=== PATIENT | male | born 1950 | race Caucasian/White ===

== ENCOUNTER 2020-05-22 08:48 | Emergency (ER) | payer MEDICARE, MEDICAID ==
[2020-05-22] MEDS ORDERED: ONDANSETRON HCL INJ/PF 4 MG/2 ML SDV IV ONE ×2 (09:52→12:46)
[2020-05-22] MEDS ORDERED: NORMAL SALINE 1000 ML 1,000 ML IV ONE (09:52)
[2020-05-22 10:06] LABS: APPEARANCE,URINE CLEAR; BILIRUBIN,URINE NEGATIVE (NEGATIVE); COLOR,URINE YELLOW; GLUCOSE, URINE NEGATIVE (NEGATIVE); KETONES,URINE TRACE mg/dL (NEGATIVE); LEUKOCYTE ESTERASE,URINE NEGATIVE (NEGATIVE); NITRITE,URINE NEGATIVE (NEGATIVE); PROTEIN,URINE NEGATIVE (NEGATIVE); UROBILINOGEN,URINE NEGATIVE mg/dL (<2.0)
[2020-05-22 10:19] LABS: ABSOLUTE LYMPHOCYTES (AUTO) 1.8 10^3/uL (0.5-4.7); ABSOLUTE MONOCYTES (AUTO) 1.1 10^3/uL (0.1-1.4); ABSOLUTE NEUT (AUTO) 14.2 10^3/uL (1.7-8.2); BASOPHILS % (AUTO) 0.2 % (0-2); HEMATOCRIT 40.2 % (37.9-51.0); HEMOGLOBIN 13.2 g/dL (13.5-17.0); LYMPHOCYTES % (AUTO) 10.4 % (13-45); MEAN CORPUSCULAR HEMOGLOBIN 29.4 pg (27.0-33.4); MEAN CORPUSCULAR VOLUME 89 fl (80-97); MONOCYTES % (AUTO) 6.2 % (3-13); PLATELET COUNT 322 10^3/uL (150-450); RED CELL DISTRIBUTION WIDTH 13.6 % (11.5-14.0); SEGMENTED NEUTROPHILS % (AUTO) 83.2 % (42-78); TOTAL CELLS COUNTED % (AUTO) 100 %; WHITE BLOOD COUNT 17.1 10^3/uL (4.0-10.5)
--- NOTE | 2020-05-22 10:33 | ER Document Report ---
ED General - General Chief Complaint: Flu Symptoms Stated Complaint: FEVER,NAUSEA,HEADACHE Time Seen by Provider: 05/22/20 09:50 Primary Care Provider: LUCY DORMAN [NO LOCAL MD] - Follow up as needed Notes: CHIEF COMPLAINT: Headache, fever, chills for 2 days HPI: 70-year-old male presenting for headache fever chills for 2 days. States he had heatstroke from working outside 2 weeks ago never was evaluated for this had some nausea and headache that went away over 2 days but it has reoccurred. He denies chest pain shortness of breath or cough. He denies abdominal pain. He denies nausea vomiting or diarrhea to me but told nursing he had nausea and some diarrhea. ROS: See HPI - all other systems were reviewed and are otherwise negative Constitutional: Subjective fever Eyes: no drainage, no blurred vision ENT: no runny nose, no sore throat Cardiovascular: no chest pain Resp: no SOB, no cough GI: no vomiting, positive diarrhea, no abdominal pain, positive nausea 97% on room air not hypoxic : no dysuria Integumentary: no rash Allergy: no hives Musculoskeletal: no extremity pain or swelling Neurological: no numbness/tingling, no weakness, positive headache MEDICATIONS: I agree with the patient medications as charted by the RN. ALLERGIES: I agree with the allergies as charted by the RN. PAST MEDICAL HISTORY/PAST SURGICAL HISTORY: Reviewed and agree as charted by RN. SOCIAL HISTORY: Reviewed and agree as charted by RN. FAMILY HISTORY: No significant familial comorbid conditions directly related to patient complaint EXAM: Reviewed vital signs as charted by RN. CONSTITUTIONAL: Alert and oriented and responds appropriately to questions. Well-appearing; well-nourished HEAD: Normocephalic; atraumatic EYES: PERRL; Conjunctivae clear, sclerae non-icteric ENT: normal nose; no rhinorrhea; moist mucous membranes; pharynx without lesions noted, no uvula edema or deviation, no tonsillar hypertrophy, phonation normal NECK: Supple without meningismus; non-tender; no cervical lymphadenopathy, no masses CARD: RRR; no murmurs, no clicks, no rubs, no gallops; symmetric distal pulses RESP: Normal chest excursion without splinting or tachypnea; breath sounds clear and equal bilaterally; no wheezes, no rhonchi, no rales, pulse oximetry ABD/GI: Normal bowel sounds; non-distended; soft, non-tender, no rebound, no guarding; no palpable organomegaly or masses. BACK: The back appears normal and is non-tender to palpation, there is no CVA tenderness EXT: Normal ROM in all joints; non-tender to palpation; no cyanosis, no effusions, no edema SKIN: Normal color for age and race; warm; dry; good turgor; no acute lesions noted NEURO: Moves all extremities equally; Motor and sensory function intact PSYCH: The patient's mood and manner are appropriate. Grooming and personal hygiene are appropriate. MDM: 70-year-old male presenting with a variety of symptoms. Told nursing he had nausea and some diarrhea but denies this to me. Initial screening labs per nursing will add COVID study. He has no chest pain shortness of breath to suggest pneumonia at this time. He has absolutely no abdominal pain on exam - Related Data Allergies/Adverse Reactions: No Known Allergies Allergy (Verified 05/22/20 09:36) Past Medical History - Social History Smoking Status: Never Smoker Chew tobacco use (# tins/day): No Frequency of alcohol use: None Drug Abuse: None Family History: Reviewed & Not Pertinent Physical Exam - Vital signs Vitals: Temp Pulse Resp BP Pulse Ox 100.3 F 83 20 147/65 H 91 L 05/22/20 10:59 05/22/20 10:59 05/22/20 10:59 05/22/20 10:59 05/22/20 10:59 Course - Re-evaluation Re-evalutation: 05/22/20 10:[address] Delacruz. Patient with a moderate leukocytosis of 17,000, does not have abdominal pain but no explanation for elevated leukocytosis, will add chest x-ray to evaluate for occult pneumonia and also add abdominal CT, urine does not show evidence of infection 05/22/20 12:37 Patient had temperature up to 100.3 here. He will be tested for COVID-19. CT imaging does not show evidence of infection. Urine is clean, isolated leukocytosis. Will give strict return precautions 05/22/20 12:41 Patient is able to fully move head and neck without restriction, no meningeal signs at all, no abdominal pain on reexam - Vital Signs Vital signs: Temp Pulse Resp BP Pulse Ox 100.3 F 83 20 147/65 H 91 L 05/22/20 10:59 05/22/20 10:59 05/22/20 10:59 05/22/20 10:59 05/22/20 10:59 - Laboratory Result Diagrams: 05/22/20 09:30 05/22/20 09:30 Laboratory results interpreted by me: 05/22/20 05/22/20 05/22/20 09:30 09:30 09:30 WBC 17.1 H Hgb 13.2 L Lymph % (Auto) 10.4 L Absolute Neuts (auto) 14.2 H Seg Neutrophils % 83.2 H Sodium 135.2 L Glucose 122 H Urine Ketones TRACE H Discharge - Discharge Clinical Impression: Person under investigation for COVID-19 Fever Qualifiers: Fever type: unspecified Qualified Code(s): R50.9 - Fever, unspecified Diarrhea Qualifiers: Diarrhea type: unspecified type Qualified Code(s): R19.7 - Diarrhea, unspecified Condition: Stable Disposition: HOME, SELF-CARE Additional Instructions: Continue Motrin Tylenol for fever. You are considered a person under investigation for COVID-19 at this time. Self quarantine at home until you have a negative test result. Test results usually take 2 to 5 days and you should hear from someone at the hospital about your test result. Return for worsening symptoms. Hydrate well at home. Your imaging studies today did not show a definitive cause for your symptoms Referrals: DENNISE RICO MD [ACTIVE STAFF] - Follow up as needed
[2020-05-22 10:51] LABS: ALBUMIN 4.4 g/dL (3.5-5.0); ALKALINE PHOSPHATASE 80 U/L (38-126); ANION GAP 9 (5-19); ASPARTATE AMINO TRANSFERASE 26 U/L (17-59); BILIRUBIN,DIRECT 0.1 mg/dL (0.0-0.4); BLOOD UREA NITROGEN 16 mg/dL (7-20); CALCIUM 9.5 mg/dL (8.4-10.2); CARBON DIOXIDE 26 mmol/L (22-30); CHLORIDE 100 mmol/L (98-107); GLUCOSE 122 mg/dL (75-110); POTASSIUM 4.4 mmol/L (3.6-5.0); TOTAL PROTEIN 7.5 g/dL (6.3-8.2)
--- NOTE | 2020-05-22 11:09 | RADIOLOGY REPORT (SQ) ---
EXAM DESCRIPTION: CHEST SINGLE VIEW IMAGES COMPLETED DATE/TIME: 05/22/2020 11:00 am REASON FOR STUDY: upper resp sx COMPARISON: None. EXAM PARAMETERS: NUMBER OF VIEWS: One view. TECHNIQUE: Single frontal radiographic view of the chest acquired. RADIATION DOSE: NA LIMITATIONS: None. FINDINGS: LUNGS AND PLEURA: No opacities, masses or pneumothorax. No pleural effusion. MEDIASTINUM AND HILAR STRUCTURES: No masses. Contour normal. HEART AND VASCULAR STRUCTURES: Heart normal in size. Normal vasculature. BONES: Old right mid clavicular fracture. HARDWARE: None in the chest. OTHER: No other significant finding. IMPRESSION: NO ACUTE RADIOGRAPHIC FINDING IN THE CHEST. TECHNICAL DOCUMENTATION: JOB ID: [id number] 2010 [employer]- All Rights Reserved Reading location - IP/workstation name: [email or web address]
[2020-05-22] MEDS ORDERED: ACETAMINOPHEN 325 MG TABLET PO ONE (11:14)
--- NOTE | 2020-05-22 12:09 | RADIOLOGY REPORT (SQ) ---
EXAM DESCRIPTION: CT ABD/PELVIS WITH IV ONLY IMAGES COMPLETED DATE/TIME: 05/22/2020 11:36 am REASON FOR STUDY: leukocytosis, diarrhea COMPARISON: None. TECHNIQUE: CT scan of the abdomen and pelvis performed using helical scanning technique with dynamic intravenous contrast injection. No oral contrast. Images reviewed with lung, soft tissue, and bone windows. Reconstructed coronal and sagittal MPR images reviewed. Delayed images for evaluation of the urinary system also acquired. All images stored on PACS. All CT scanners at this facility use dose modulation, iterative reconstruction, and/or weight based d osing when appropriate to reduce radiation dose to as low as reasonably achievable (ALARA). [facility]: Dose Right [facility]: CareDose [facility]: Dose Right [facility]: Teradose 4D [facility]: [email or web address] CONTRAST TYPE AND DOSE: contrast/concentration: Isovue 350.00 mmol/ml; Total Contrast Delivered: 83. 0 ml; Total Saline Delivered: 69.0 ml RENAL FUNCTION: BUN 16, creatinine 1.03 RADIATION DOSE: CT Rad equipment meets quality standard of care and radiation dose reduction techniq ues were employed. CTDIvol: 7.8 - 11.0 mGy. DLP: 955 mGy-cm.. LIMITATIONS: None. FINDINGS: LOWER CHEST: No significant findings. No nodules or infiltrates. LIVER: Normal size. No masses. No dilated ducts. SPLEEN: Normal size. No focal lesions. PANCREAS: No masses. No significant calcifications. No adjacent inflammation or peripancreatic fluid collections. Pancreatic duct not dilated. GALLBLADDER: No identified stones by CT criteria. No inflammatory changes to suggest cholecystitis. ADRENAL GLANDS: No significant masses or asymmetry. RIGHT KIDNEY AND URETER: No solid masses. No significant calcifications. No hydronephrosis or hyd roureter. There are right parapelvic cysts LEFT KIDNEY AND URETER: No solid masses. No significant calcifications. No hydronephrosis or hydr oureter. AORTA AND VESSELS: No aneurysm. No dissection. Renal arteries, SMA, celiac without stenosis. RETROPERITONEUM: No retroperitoneal adenopathy, hemorrhage or masses. BOWEL AND PERITONEAL CAVITY: No masses or inflammatory changes. No free fluid or peritoneal masses. APPENDIX: Normal. PELVIS: No mass. No free fluid. Normal bladder. ABDOMINAL WALL: No masses. No hernias. BONES: No significant or acute findings. OTHER: No other significant finding. IMPRESSION: NO SIGNIFICANT OR ACUTE FINDING IN THE ABDOMEN OR PELVIS ON CT SCAN WITH IV CONTRAST. TECHNICAL DOCUMENTATION: JOB ID: [id number] Quality ID # [id number]: Final reports with documentation of one or more dose reduction techniques (e.g., Au tomated exposure control, adjustment of the mA and/or kV according to patient size, use of iterative reconstruction technique) 2010 [employer]- All Rights Reserved Reading location - IP/workstation name: [email or web address]
[2020-05-22] MEDS ORDERED: KETOROLAC TROMETHAMINE INJ/PF 30 MG/1 ML SDV IV ONE (12:45)
--- NOTE | 2020-05-22 14:47 | RADIOLOGY REPORT (SQ) ---
EXAM DESCRIPTION: CT HEAD WITHOUT IMAGES COMPLETED DATE/TIME: 05/22/2020 2:38 pm REASON FOR STUDY: headache COMPARISON: None. TECHNIQUE: Axial images acquired through the brain without intravenous contrast. Images reviewed wi th bone, brain and subdural windows. Additional sagittal and coronal reconstructions were generated. Images stored on PACS. All CT scanners at this facility use dose modulation, iterative reconstruction, and/or weight based d osing when appropriate to reduce radiation dose to as low as reasonably achievable (ALARA). [facility]: Dose Right [facility]: CareDose [facility]: Dose Right [facility]: Teradose 4D [facility]: [employer] RADIATION DOSE: CT Rad equipment meets quality standard of care and radiation dose reduction techniq ues were employed. CTDIvol: 53.2 mGy. DLP: 1017 mGy-cm. mGy. LIMITATIONS: None. FINDINGS: VENTRICLES: Normal size and contour. CEREBRUM: No masses. No hemorrhage. No midline shift. No evidence for acute infarction. Normal gra y/white matter differentiation. No areas of low density in the white matter. CEREBELLUM: No masses. No hemorrhage. No alteration of density. No evidence for acute infarction. EXTRAAXIAL SPACES: No fluid collections. No masses. ORBITS AND GLOBE: No intra- or extraconal masses. Normal contour of globe without masses. CALVARIUM: No fracture. PARANASAL SINUSES: There is bilateral maxillary sinus mucosal thickening left greater than right. SOFT TISSUES: No mass or hematoma. OTHER: No other significant finding. IMPRESSION: 1. No acute intracranial event. 2. Bilateral maxillary sinusitis left greater than right. EVIDENCE OF ACUTE STROKE: NO. COMMENT: Quality ID # [id number]: Final reports with documentation of one or more dose reduction techniques (e.g., Automated exposure control, adjustment of the mA and/or kV according to patient size, use of iterative reconstruction technique) TECHNICAL DOCUMENTATION: JOB ID: [id number] 2010 [employer]- All Rights Reserved Reading location - IP/workstation name: [email or web address]
[2020-05-22] MEDS ORDERED: AMOXICILLIN TR/POT CLAVULANATE 875-125 MG TAB PO ONE (14:53)
[2020-05-22 15:12] VITALS: BP 124/68
== END 2020-05-22 15:03 | disposition home or self-care (01) ==
LOC: ER 08:48
DX: J01.00 Acute maxillary sinusitis, unspecified (principal); R19.7 Diarrhea, unspecified; R50.9 Fever, unspecified; R51 Headache; Z98.890 Other specified postprocedural states; Z20.828 Contact with and (suspected) exposure to other viral communicable diseases
CPT/HCPCS: 96376; 99284; 96361; 96374; 96375; 36415; 87040; 82550; 85025; 87077; 80053; 81001; 87150 ×26; 71045; 70450; 74177; U0003; A9270; J1885; J2405; J7030; J3490; C9803; 87186; 87635

== ENCOUNTER 2020-05-23 04:29 | Inpatient (IN) | payer MEDICAID, MEDICARE ==
[2020-05-23] MEDS ORDERED: ACETAMINOPHEN 325 MG TABLET PO ONE ×2 (07:06→07:36)
[2020-05-23] MEDS ORDERED: NORMAL SALINE 1000 ML 1,000 ML IV ONE (07:37)
[2020-05-23 08:15] LABS: ABSOLUTE LYMPHOCYTES (AUTO) 1.3 10^3/uL (0.5-4.7); ABSOLUTE MONOCYTES (AUTO) 1.1 10^3/uL (0.1-1.4); BASOPHILS % (AUTO) 0.2 % (0-2); HEMATOCRIT 38.4 % (37.9-51.0); HEMOGLOBIN 12.8 g/dL (13.5-17.0); LYMPHOCYTES % (AUTO) 8.2 % (13-45); MEAN CORPUSCULAR HEMOGLOBIN 29.6 pg (27.0-33.4); MEAN CORPUSCULAR HGB CONC 33.4 g/dL (32.0-36.0); MEAN CORPUSCULAR VOLUME 89 fl (80-97); MONOCYTES % (AUTO) 6.5 % (3-13); PLATELET COUNT 308 10^3/uL (150-450); RED BLOOD COUNT 4.33 10^6/uL (4.35-5.55); RED CELL DISTRIBUTION WIDTH 13.3 % (11.5-14.0); SEGMENTED NEUTROPHILS % (AUTO) 85.1 % (42-78); TOTAL CELLS COUNTED % (AUTO) 100 %; WHITE BLOOD COUNT 16.4 10^3/uL (4.0-10.5)
[2020-05-23 08:24] LABS: ALBUMIN 4.3 g/dL (3.5-5.0); ALKALINE PHOSPHATASE 77 U/L (38-126); ANION GAP 8 (5-19); ASPARTATE AMINO TRANSFERASE 32 U/L (17-59); BILIRUBIN,DIRECT 0.1 mg/dL (0.0-0.4); BLOOD UREA NITROGEN 20 mg/dL (7-20); CALCIUM 9.3 mg/dL (8.4-10.2); CARBON DIOXIDE 26 mmol/L (22-30); CHLORIDE 100 mmol/L (98-107); CREATINE KINASE 603 U/L (55-170); GLUCOSE 115 mg/dL (75-110); POTASSIUM 4.4 mmol/L (3.6-5.0); TOTAL PROTEIN 7.2 g/dL (6.3-8.2)
--- NOTE | 2020-05-23 08:43 | ER Document Report ---
Entered by KARTHIK ORELLANA SCRIBE 05/23/20 0735 Acting as scribe for:ASIYA ISRAEL MD ED General - General Chief Complaint: Headache Stated Complaint: ABNORMAL LABS Time Seen by Provider: 05/23/20 07:14 Mode of Arrival: Ambulatory Information source: Patient Notes: This 70 year old male patient presents to the emergency department today after being called at around 3:00 AM this morning for gram positive rods in blood cultures drawn yesterday. Patient reports that a week and a half ago he was outside in the heat for about 1.5 hours and when he came back inside he did not feel well, complaining of a headache. This headache has waxed and waned since then. reports that two days ago the patient began "stumbling around and couldn't walk or get out of bed", stating that he had a headache and movement exacerbated the headache. states the patient has not eaten any food in two days either. Patient was seen here yesterday for fever, nausea, and headache. The patient had a work-up including a CT scan of the abdomen and pelvis and a chest x-ray. His white blood cell count was elevated. At discharge he continued to complain of headache, so a head CT was done. Head CT showed bilateral maxillary sinus disease left > right. Patient was sent home on Augmentin 875(he had 1 dose here, and 1 dose at home last night). He last took tylenol last night at 11:30 PM. Patient has had associated nausea, chills, fevers, lightheadedness, dark urine, and a stiff neck. 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 Patient has not vomited. TRAVEL OUTSIDE OF THE [place] IN LAST 30 DAYS: No - Related Data Allergies/Adverse Reactions: No Known Allergies Allergy (Verified 05/22/20 09:36) Home Medications: Augmentin Past Medical History - General Information source: Patient - Social History Smoking Status: Former Smoker Cigarette use (# per day): No Chew tobacco use (# tins/day): No Frequency of alcohol use: None Drug Abuse: None Lives with: Family Family History: Reviewed & Not Pertinent Traumatic Medical History: Reports: Hx Spine Fracture - neck Past Surgical History: Reports: Other - Cervical fracture repair Review of Systems - Review of Systems Constitutional: See HPI, Chills, Fever EENT: No symptoms reported Cardiovascular: See HPI, Lightheaded Respiratory: No symptoms reported Gastrointestinal: See HPI, Nausea. denies: Vomiting Genitourinary: No symptoms reported Male Genitourinary: No symptoms reported Musculoskeletal: See HPI, Muscle stiffness, Neck pain Skin: No symptoms reported Hematologic/Lymphatic: No symptoms reported Neurological/Psychological: See HPI, Headaches -: Yes All other systems reviewed and negative Physical Exam - Vital signs Vitals: Temp Pulse Resp BP Pulse Ox 99.3 F 80 20 144/77 H 100 05/23/20 04:37 05/23/20 04:37 05/23/20 04:37 05/23/20 04:37 05/23/20 04:37 - Notes Notes: Physical Exam: General: Alert, appears uncomfortable. HEENT: Normocephalic. Atraumatic. PERRL. Extraocular movements intact. Patient denies pain with extreme lateral gaze in either direction. Oropharynx clear. No maxillary or frontal sinus tenderness with percussion. He indicates there is pain in his frontal/forehead region and on the sides of his head although overlying muscles are not tender with palpation. Neck: Limited neck flexion, flexion seems to exacerbates headache and he complains of pain with neck flexion but mentions that his neck always hurts when flexed due to prior neck fracture and arthritis. Respiratory: No respiratory distress. Clear and equal breath sounds bilaterally. Cardiovascular: Regular rate and rhythm. Abdominal: Normal Inspection. Non-tender. No distension. Normal Bowel Sounds. Back: No gross abnormalities. Extremities: Moves all four extremities. Upper extremities: Normal inspection. Normal ROM. Lower extremities: Normal inspection. No edema. Normal ROM. Neurological: Normal cognition. AAOx4. Normal speech. When I had the patient stand up to walk, he is very unsteady on his feet and describes just a generalized weakness. Psychological: Normal affect. Normal Mood. Skin: Warm. Dry. Normal color. Course - Re-evaluation Re-evalutation: 05/23/20 09:58 Went back to recheck on the patient, he is feeling a little better after the Tylenol. I was able to have him almost fully flex his neck with chin almost touching the chest. He states he usually is unable to go any further than that. It makes his neck a little uncomfortable, but does not make the headache any worse. 05/23/20 16:16 PROCEDURE: Lumbar puncture: The patient was placed in the left lateral position with his hips and knees flexed. The lumbar back was prepped with Betadine swabs starting in the center at the L4-5 region and cristina in a circular motion extending out from the center. This was done with all the swabs. The skin and subcutaneous tissue was anesthetized with 4 mL's 1% lidocaine. The needle was then introduced deeper with 2 more mL's into the bony cortical surfaces. The initial attempt to access the spinal fluid was unsuccessful, and the needle was positioned cephalad about 1 cm. This was successful in entering the space and clear CSF fluid was encountered. Opening pressure was 190 mm of water. Four tubes were each filled with 1 mL of CSF. The stylette was placed back in the LP needle, then the needle was withdrawn and a gauze with pressure was applied over the LP spot for several minutes. Band-Aids were then placed over the 2 puncture sites. Patient was then rolled onto his back and allowed to lay flat on his back post procedure. - Vital Signs Vital signs: Temp Pulse Resp BP Pulse Ox 98.7 F 80 32 H 151/76 H 96 05/23/20 09:58 05/23/20 04:37 05/23/20 14:01 05/23/20 14:01 05/23/20 14:01 - Laboratory Result Diagrams: 05/23/20 07:48 05/23/20 07:48 Laboratory results interpreted by me: 05/23/20 05/23/20 05/23/20 07:48 07:48 09:22 WBC 16.4 H RBC 4.33 L Hgb 12.8 L Lymph % (Auto) 8.2 L Absolute Neuts (auto) 14.0 H Seg Neutrophils % 85.1 H Sodium 133.5 L Glucose 115 H Creatine Kinase 603 H Urine Ketones 20 H Urine Blood SMALL H Urine Urobilinogen 2.0 H CSF WBC CSF Total Protein 05/23/20 05/23/20 05/23/20 11:10 11:10 11:10 WBC RBC Hgb Lymph % (Auto) Absolute Neuts (auto) Seg Neutrophils % Sodium Glucose Creatine Kinase Urine Ketones Urine Blood Urine Urobilinogen CSF WBC 82 H 72 H CSF Total Protein 111 H - Consults Dr. Rocha Time consulted: 11:52 Consulted provider: will come to ER Discharge - Discharge Clinical Impression: Viral meningitis, Person under investigation for COVID-19 Fever Qualifiers: Fever type: unspecified Qualified Code(s): R50.9 - Fever, unspecified Condition: Stable Disposition: ADMITTED INPATIENT Admitting Provider: Josefina (Hospitalist) Unit Admitted: [facility] I personally performed the services described in the documentation, reviewed and edited the documentation which was dictated to the scribe in my presence, and it accurately records my words and actions.
[2020-05-23 09:42] LABS: APPEARANCE,URINE CLEAR; BILIRUBIN,URINE NEGATIVE (NEGATIVE); COLOR,URINE YELLOW; GLUCOSE, URINE NEGATIVE (NEGATIVE); KETONES,URINE 20 mg/dL (NEGATIVE); LEUKOCYTE ESTERASE,URINE NEGATIVE (NEGATIVE); NITRITE,URINE NEGATIVE (NEGATIVE); PROTEIN,URINE NEGATIVE (NEGATIVE); URINE SPECIFIC GRAVITY 1.025
[2020-05-23] MEDS ORDERED: LIDOCAINE 1% INJ-PF (10 MG/ML) 30 ML SDV INJ ONE (10:30)
[2020-05-23 11:52] LABS: GLUCOSE,CSF 61 mg/dL (40-70); PROTEIN,CSF 111 mg/dL (12-60)
[2020-05-23 12:31] LABS: APPEARANCE ALL TUBES CLEAR; COLOR ALL TUBES COLORLESS; CSF TUBE NUMBER 1
[2020-05-23 12:32] LABS: RED BLOOD CELL,CSF 7 /uL (0-10); WHITE BLOOD CELL,CSF 82 /uL (0-5)
[2020-05-23 12:33] LABS: APPEARANCE ALL TUBES CLEAR; COLOR ALL TUBES COLORLESS; CSF TUBE NUMBER 4; RED BLOOD CELL,CSF 2 /uL (0-10)
[2020-05-23 12:34] LABS: WHITE BLOOD CELL,CSF 72 /uL (0-5)
[2020-05-23 12:52] LABS: MONONUCLEAR CELLS CSF 63 %; POLYMORPHONUCLEAR CELLS CSF 37 %
[2020-05-23 12:55] LABS: MONONUCLEAR CELLS CSF 76 %; POLYMORPHONUCLEAR CELLS CSF 24 %
[2020-05-23] MEDS ORDERED: ONDANSETRON HCL INJ/PF 4 MG/2 ML SDV IV PRN (13:34)
[2020-05-23] MEDS ORDERED: KETOROLAC TROMETHAMINE INJ/PF 30 MG/1 ML SDV IV PRN (13:56)
[2020-05-23] MEDS ORDERED: VANCOMYCIN HCL INJ 1000 MG VIAL IV SCH (14:00)
[2020-05-23] MEDS ORDERED: ACYCLOVIR SODIUM INJ/PF 500 MG/10 ML SDV IV SCH (14:00)
--- NOTE | 2020-05-23 14:35 | PDOC H&P ---
History of Present Illness Patient complains of: Dizziness, headache, fever History of Present Illness: RAFAEL PARADA is a 70 year old male with history of cognitive impairments, who presents to the hospital with complaints of profuse headache as well as fever for the past few days. His symptoms started last week while he was outside working on the yard. He subsequently developed heavy fever as well as headache. The headache is in his parieto-occipital region. Over the past 2 days. He started to feel extremely sluggish and dizzy to the point where he was somewhat challenging to ambulate. He admits to photophobia. He denies phonophobia, nausea or vomiting. He denies any weakness in the extremities he denies any changes in mental status. Patient's sister is present at bedside who helps with history as well and states that patient has not really experienced any personality changes due to this. Denies exposure to sick contacts. Apparently patient rarely leaves the house. Patient was in the ER yesterday and was tested for COVID-19 discharged with Augmentin after CAT scan revealed sinusitis. Past Medical History Cardiac Medical History: Denies: Congestive Heart Failure, Coronary Artery Disease, Hypertension Pulmonary Medical History: Denies: Asthma, Chronic Obstructive Pulmonary Disease (COPD), Tuberculosis Neurological Medical History: Denies: Hemorrhagic CVA, Ischemic CVA Endocrine Medical History: Denies: Diabetes Mellitus Type 1, Diabetes Mellitus Type 2 Past Surgical History Past Surgical History: Reports: Other - Cervical fracture repair Social History Lives with: Family Smoking Status: Former Smoker Electronic Cigarette use?: No Frequency of Alcohol Use: None Hx Recreational Drug Use: No - Advance Directive Resuscitation Status: Full Code Family History Family History: Malignancy - For lung cancer and colon cancer in siblings Parental Family History Reviewed: Yes Children Family History Reviewed: NA Sibling(s) Family History Reviewed.: Yes Medication/Allergy Home Medications: Amoxicillin/Potassium Clav [Augmentin 875-125 Tablet] 1 tab PO Q12 #20 tablet 05/22/20 Allergies/Adverse Reactions: No Known Allergies Allergy (Verified 05/22/20 09:36) Review of Systems Constitutional: PRESENT: fever(s) Eyes: PRESENT: visual disturbances - Photophobia Ears: ABSENT: hearing changes Nose, Mouth, and Throat: PRESENT: headache(s) Cardiovascular: ABSENT: chest pain Respiratory: ABSENT: cough, dyspnea Gastrointestinal: ABSENT: abdominal pain, nausea, vomiting Genitourinary: PRESENT: dysuria Musculoskeletal: ABSENT: joint swelling Integumentary: PRESENT: diaphoresis Neurological: PRESENT: dizziness, lack of coordination. ABSENT: abnormal movements, abnormal speech, numbness, paresthesias, syncope, weakness Endocrine: ABSENT: polyuria Hematologic/Lymphatic: ABSENT: lymphadenopathy Allergic/Immunologic: PRESENT: seasonal rhinorrhea Physical Exam Vital Signs: Temp Pulse Resp BP Pulse Ox 98.7 F 80 21 H 120/75 95 05/23/20 09:58 05/23/20 04:37 05/23/20 09:03 05/23/20 09:03 05/23/20 09:03 Intake & Output 05/22/20 05/23/20 05/24/20 06:59 06:59 06:59 Intake Total 1000 Output Total 650 Balance 350 Weight 72.575 kg General appearance: PRESENT: no acute distress, cooperative Head exam: PRESENT: normocephalic Eye exam: PRESENT: EOMI, PERRLA. ABSENT: nystagmus Mouth exam: PRESENT: neck supple Neck exam: ABSENT: JVD Respiratory exam: PRESENT: clear to auscultation kev, tachypnea, wheezes. ABSENT: symmetrical, unlabored Cardiovascular exam: PRESENT: RRR, +S1, +S2. ABSENT: tachycardia GI/Abdominal exam: PRESENT: normal bowel sounds, soft. ABSENT: rebound, rigid, tenderness Extremities exam: ABSENT: pedal edema Neurological exam: PRESENT: alert, awake, oriented to person, oriented to place, oriented to situation, CN II-XII grossly intact. ABSENT: oriented to time, motor sensory deficit Psychiatric exam: PRESENT: anxious. ABSENT: agitated Focused psych exam: ABSENT: pressured speech Skin exam: ABSENT: jaundice Results Laboratory Results: 05/23/20 07:48 05/23/20 07:48 05/23/20 05/23/20 05/23/20 07:48 07:48 07:48 WBC 16.4 H RBC 4.33 L Hgb 12.8 L Hct 38.4 MCV 89 MCH 29.6 MCHC 33.4 RDW 13.3 Plt Count 308 Seg Neutrophils % 85.1 H Sodium 133.5 L Potassium 4.4 Chloride 100 Carbon Dioxide 26 Anion Gap 8 BUN 20 Creatinine 1.00 Est GFR ( Amer) > 60 Glucose 115 H Lactic Acid 1.0 Calcium 9.3 Total Bilirubin 1.0 AST 32 Alkaline Phosphatase 77 Total Protein 7.2 Albumin 4.3 Urine Color Urine Appearance Urine pH Ur Specific [place] Urine Protein Urine Glucose (UA) Urine Ketones Urine Blood Urine Nitrite Ur Leukocyte Esterase Urine WBC (Auto) Urine RBC (Auto) Fluid Tube Number CSF Volume CSF Appearance CSF Color CSF WBC CSF RBC CSF Polymorphonuclear CSF Glucose CSF Total Protein 05/23/20 05/23/20 05/23/20 09:22 11:10 11:10 WBC RBC Hgb Hct MCV MCH MCHC RDW Plt Count Seg Neutrophils % Sodium Potassium Chloride Carbon Dioxide Anion Gap BUN Creatinine Est GFR ( Amer) Glucose Lactic Acid Calcium Total Bilirubin AST Alkaline Phosphatase Total Protein Albumin Urine Color YELLOW Urine Appearance CLEAR Urine pH 5.0 Ur Specific [place] 1.025 Urine Protein NEGATIVE Urine Glucose (UA) NEGATIVE Urine Ketones 20 H Urine Blood SMALL H Urine Nitrite NEGATIVE Ur Leukocyte Esterase NEGATIVE Urine WBC (Auto) 1 Urine RBC (Auto) 1 Fluid Tube Number 1 CSF Volume 4.0 CSF Appearance CLEAR CSF Color COLORLESS CSF WBC 82 H CSF RBC 7 CSF Polymorphonuclear 37 CSF Glucose 61 CSF Total Protein 111 H 05/23/20 11:10 WBC RBC Hgb Hct MCV MCH MCHC RDW Plt Count Seg Neutrophils % Sodium Potassium Chloride Carbon Dioxide Anion Gap BUN Creatinine Est GFR ( Amer) Glucose Lactic Acid Calcium Total Bilirubin AST Alkaline Phosphatase Total Protein Albumin Urine Color Urine Appearance Urine pH Ur Specific [place] Urine Protein Urine Glucose (UA) Urine Ketones Urine Blood Urine Nitrite Ur Leukocyte Esterase Urine WBC (Auto) Urine RBC (Auto) Fluid Tube Number 4 CSF Volume 4.0 CSF Appearance CLEAR CSF Color COLORLESS CSF WBC 72 H CSF RBC 2 CSF Polymorphonuclear 24 CSF Glucose CSF Total Protein 05/23/20 05/23/20 07:48 07:48 Creatine Kinase 603 H Troponin I < 0.012 Assessment and Plan - Diagnosis (1) Meningitis Is this a current diagnosis for this admission?: Yes Plan: Patient's lumbar puncture is quite consistent with meningitis. It seems most consistent viral meningitis with WBC of 72, mononuclear cells 76% (74 lymph, 2monocytes per my discussion w/ Micro lab), protein 111 and glucose of 61. I will send a respiratory viral panel, enterovirus CSF PCR, HSV PCR, HIV, VDRL- CSF Will empirically treat with acyclovir even though patient denies history of HSV. I will also cover with empiric vancomycin and ceftriaxone until Gram stain/culture result Airborne precautions until we get a negative Gram stain/culture Consult ID on Monday. Monitor closely for progression to encephalitis. (2) Fever Qualifiers: Fever type: unspecified Qualified Code(s): R50.9 - Fever, unspecified Is this a current diagnosis for this admission?: Yes Plan: Likely secondary to meningitis Patient was thoroughly worked up for causes of fever on recent ER visit. Chest x-ray was negative. Urinalysis and abdominal/pelvis CT with contrast were also negative. Leukocytosis noted. COVID-19 test pending (3) Maxillary sinusitis Qualifiers: Chronicity: unspecified Qualified Code(s): J32.0 - Chronic maxillary sinusitis Is this a current diagnosis for this admission?: Yes Plan: I suspect that this is more of a chronic finding that was incidentally noted on head CT on 05/22/2020 rather than acute as patient does not endorse any profound worsening of rhinorrhea/congestion and only endorses rather small amounts of rhinorrhea. Either way, this could also be a source of his current problem. We will stop the Augmentin that was prescribed as common bacterial pathogens would be covered by vancomycin and ceftriaxone which he is receiving for his meningitis nonetheless. Respiratory viral panel will be obtained given meningitis. Flonase. Supportive care. (4) Person under investigation for COVID-19 Is this a current diagnosis for this admission?: Yes Plan: COVID test done on 05/22/2020. Result is pending. (5) Cognitive impairment Is this a current diagnosis for this admission?: Yes Plan: Patient's sister states patient has a history of cognitive impairment but however mostly makes his own decisions but she is there to assist him. - Time Time Spent with patient: 35 or more minutes Anticipated Discharge Disposition: Home, Self Care Anticipated Discharge Timeframe: undetermined
[2020-05-23] MEDS: CEFTRIAXONE 2 GM/D5W RTU 2 GM/50 ML RTUPB IV SCH (15:12)
[2020-05-23 15:28] LABS: UNC RESP CORONAVIRUS 229E NOT DETECTED; UNC RESP CORONAVIRUS OC43 NOT DETECTED; UNCRES RHINOVIRUS/ENTEROVIRUS NOT DETECTED
[2020-05-23] MEDS: ACYCLOVIR SODIUM 700 MG in NORMAL SALINE 100 ML IV SCH (16:38)
[2020-05-23] MEDS: FLUTICASONE NASAL SPRAY 50 MCG/SPRY 120 SPRAY/16 GM NASL SCH (16:40)
[2020-05-23] MEDS: VANCOMYCIN HCL 1,000 MG in DEXTROSE 5%-WATER 250 ML IV SCH (17:50)
--- NOTE | 2020-05-23 21:06 | EKG REPORT ---
SEVERITY:- NORMAL ECG - SINUS RHYTHM : Confirmed by: Brandi Noel MD 23-May-2020 21:05:17
[2020-05-23] MEDS: ACETAMINOPHEN 325 MG TABLET PO PRN (22:42)
[2020-05-24] MEDS: ACYCLOVIR SODIUM 700 MG in NORMAL SALINE 100 ML IV SCH ×3 (02:04→17:32)
[2020-05-24] MEDS: CEFTRIAXONE 2 GM/D5W RTU 2 GM/50 ML RTUPB IV SCH ×2 (03:34→14:22)
[2020-05-24] MEDS: VANCOMYCIN HCL 1,000 MG in DEXTROSE 5%-WATER 250 ML IV SCH ×2 (04:24→15:08)
[2020-05-24] MEDS: FLUTICASONE NASAL SPRAY 50 MCG/SPRY 120 SPRAY/16 GM NASL SCH ×2 (06:41→17:32)
[2020-05-24 06:44] LABS: ABSOLUTE BASOPHILS # (AUTO) 0.1 10^3/uL (0.0-0.2); ABSOLUTE LYMPHOCYTES (AUTO) 2.1 10^3/uL (0.5-4.7); ABSOLUTE MONOCYTES (AUTO) 1.1 10^3/uL (0.1-1.4); ABSOLUTE NEUT (AUTO) 8.5 10^3/uL (1.7-8.2); BASOPHILS % (AUTO) 0.5 % (0-2); EOSINOPHILS % (AUTO) 0.1 % (0-6); HEMATOCRIT 33.7 % (37.9-51.0); HEMOGLOBIN 11.4 g/dL (13.5-17.0); LYMPHOCYTES % (AUTO) 18.1 % (13-45); MEAN CORPUSCULAR HEMOGLOBIN 29.6 pg (27.0-33.4); MEAN CORPUSCULAR HGB CONC 33.8 g/dL (32.0-36.0); MEAN CORPUSCULAR VOLUME 88 fl (80-97); MONOCYTES % (AUTO) 9.3 % (3-13); PLATELET COUNT 272 10^3/uL (150-450); RED BLOOD COUNT 3.85 10^6/uL (4.35-5.55); RED CELL DISTRIBUTION WIDTH 13.2 % (11.5-14.0); TOTAL CELLS COUNTED % (AUTO) 100 %; WHITE BLOOD COUNT 11.8 10^3/uL (4.0-10.5)
[2020-05-24 07:01] LABS: ALBUMIN 3.4 g/dL (3.5-5.0); ALKALINE PHOSPHATASE 59 U/L (38-126); ANION GAP 9 (5-19); ASPARTATE AMINO TRANSFERASE 30 U/L (17-59); BILIRUBIN,TOTAL 0.5 mg/dL (0.2-1.3); BLOOD UREA NITROGEN 19 mg/dL (7-20); CALCIUM 8.8 mg/dL (8.4-10.2); CARBON DIOXIDE 23 mmol/L (22-30); CHLORIDE 100 mmol/L (98-107); GLUCOSE 118 mg/dL (75-110); PHOSPHORUS 2.7 mg/dL (2.5-4.5); POTASSIUM 3.8 mmol/L (3.6-5.0); TOTAL PROTEIN 6.3 g/dL (6.3-8.2)
[2020-05-24] MEDS: ENOXAPARIN SODIUM INJ 40 MG/0.4 ML DISP.SYRIN SUBCUT SCH (09:53)
--- NOTE | 2020-05-24 11:16 | PDOC PROGRESS REPORT ---
Subjective Progress Note for:: 05/24/20 Subjective:: Patient still feels fatigued. His fevers have improved mildly. He continues to have headache but that has improved. He is remarkably photophobic bothered by the smallest bit of light. He denies ophthalmoplegia. Reason For Visit: MENINGITIS, FEVER Physical Exam Vital Signs: Temp Pulse Resp BP Pulse Ox 99.0 F 65 20 120/54 L 96 05/24/20 08:00 05/24/20 08:00 05/24/20 08:00 05/24/20 08:00 05/24/20 03:08 Intake & Output 05/23/20 05/24/20 05/25/20 06:59 06:59 06:59 Intake Total 2328 Output Total 1225 Balance 1103 Weight 72.575 kg 78.6 kg General appearance: PRESENT: no acute distress, cooperative Eye exam: PRESENT: EOMI, other - No evidence of chemosis. ABSENT: periorbital swelling, scleral icterus Mouth exam: PRESENT: neck supple Neck exam: ABSENT: JVD Respiratory exam: PRESENT: clear to auscultation kev, unlabored. ABSENT: tachypnea, wheezes Cardiovascular exam: PRESENT: RRR, +S1, +S2. ABSENT: tachycardia GI/Abdominal exam: PRESENT: soft. ABSENT: rebound, rigid, tenderness Gentrourinary exam: ABSENT: ecchymosis, erythema, lacerations, lesions, scrotal swelling, urethral discharge, indwelling catheter Extremities exam: ABSENT: calf tenderness, pedal edema Musculoskeletal exam: ABSENT: ambulatory Neurological exam: PRESENT: alert, awake, oriented to person, oriented to place, oriented to time, oriented to situation Psychiatric exam: ABSENT: agitated, anxious Focused psych exam: ABSENT: pressured speech Skin exam: ABSENT: jaundice Results Laboratory Results: 05/24/20 06:02 05/24/20 06:02 05/23/20 05/23/20 05/23/20 11:10 11:10 11:10 WBC RBC Hgb Hct MCV MCH MCHC RDW Plt Count Seg Neutrophils % Sodium Potassium Chloride Carbon Dioxide Anion Gap BUN Creatinine Est GFR ( Amer) Glucose Calcium Phosphorus Magnesium Total Bilirubin AST Alkaline Phosphatase Total Protein Albumin TSH Fluid Tube Number 1 4 CSF Volume 4.0 4.0 CSF Appearance CLEAR CLEAR CSF Color COLORLESS COLORLESS CSF WBC 82 H 72 H CSF RBC 7 2 CSF Polymorphonuclear 37 24 CSF Glucose 61 CSF Total Protein 111 H 05/24/20 05/24/20 05/24/20 06:02 06:02 06:02 WBC 11.8 H RBC 3.85 L Hgb 11.4 L Hct 33.7 L MCV 88 MCH 29.6 MCHC 33.8 RDW 13.2 Plt Count 272 Seg Neutrophils % 72.0 Sodium 132.2 L Potassium 3.8 Chloride 100 Carbon Dioxide 23 Anion Gap 9 BUN 19 Creatinine 0.80 Est GFR ( Amer) > 60 Glucose 118 H Calcium 8.8 Phosphorus 2.7 Magnesium 2.1 Total Bilirubin 0.5 AST 30 Alkaline Phosphatase 59 Total Protein 6.3 Albumin 3.4 L TSH 4.26 Fluid Tube Number CSF Volume CSF Appearance CSF Color CSF WBC CSF RBC CSF Polymorphonuclear CSF Glucose CSF Total Protein 05/23/20 05/23/20 07:48 07:48 Creatine Kinase 603 H Troponin I < 0.012 Assessment and Plan - Diagnosis (1) Meningitis Is this a current diagnosis for this admission?: Yes Plan: Patient's lumbar puncture is quite consistent with meningitis. It seems most consistent viral meningitis with WBC of 72, lymphocyte predominance (74 lymph, 2monocytes per my discussion w/ Micro lab), protein 111 and glucose of 61. Respiratory viral panel, enterovirus CSF PCR, HSV PCR, HIV, VDRL-CSF have been sent Send CSF cytology as well. Patient denies history of HSV. HIV test is negative. However, I will continue treatment with IV acyclovir until CSF HSV PCR comes back negative and pending ID consult tomorrow. I will also continue vancomycin and ceftriaxone until final Gram stain/culture is negative Airborne precautions until we get a negative Gram stain/culture Consult ID tomorrow Monitor closely for progression to encephalitis. Neurochecks (2) Fever Qualifiers: Fever type: unspecified Qualified Code(s): R50.9 - Fever, unspecified Is this a current diagnosis for this admission?: Yes Plan: Likely secondary to meningitis Patient was thoroughly worked up for causes of fever on recent ER visit. Chest x-ray was negative. Urinalysis and abdominal/pelvis CT with contrast were also negative. Leukocytosis noted. COVID-19 test is negative Follow-up blood cultures (3) Maxillary sinusitis Qualifiers: Chronicity: unspecified Qualified Code(s): J32.0 - Chronic maxillary sinusitis Is this a current diagnosis for this admission?: Yes Plan: I suspect that this is more of a chronic finding that was incidentally noted on head CT on 05/22/2020 rather than acute as patient does not endorse any profound worsening of rhinorrhea/congestion and only endorses rather small amounts of rhinorrhea. Either way, this could also be a source of his current problem. We will stop the Augmentin that was prescribed as common bacterial pathogens would be covered by vancomycin and ceftriaxone which he is receiving for his meningitis nonetheless. Respiratory viral panel will be obtained given meningitis. Flonase. Supportive care. (4) Person under investigation for COVID-19 Is this a current diagnosis for this admission?: Yes Plan: COVID test done on 05/22/2020 just results as negative (5) Cognitive impairment Is this a current diagnosis for this admission?: Yes Plan: Patient's sister states patient has a history of cognitive impairment but however mostly makes his own decisions but she is there to assist him. - Time Time Spent with patient: 15-24 minutes Anticipated Discharge Disposition: Home, Self Care Anticipated Discharge Timeframe: within 72 hours
[2020-05-25] MEDS: ACYCLOVIR SODIUM 700 MG in NORMAL SALINE 100 ML IV SCH ×3 (01:58→18:20)
[2020-05-25] MEDS: CEFTRIAXONE 2 GM/D5W RTU 2 GM/50 ML RTUPB IV SCH (03:26)
[2020-05-25] MEDS: VANCOMYCIN HCL 1,000 MG in DEXTROSE 5%-WATER 250 ML IV SCH (03:54)
[2020-05-25] MEDS: FLUTICASONE NASAL SPRAY 50 MCG/SPRY 120 SPRAY/16 GM NASL SCH ×2 (06:16→18:20)
[2020-05-25] MEDS ORDERED: ONDANSETRON HCL INJ/PF 4 MG/2 ML SDV IV PRN (08:00)
[2020-05-25 08:04] LABS: ABSOLUTE LYMPHOCYTES (AUTO) 1.8 10^3/uL (0.5-4.7); ABSOLUTE MONOCYTES (AUTO) 0.7 10^3/uL (0.1-1.4); ABSOLUTE NEUT (AUTO) 7.2 10^3/uL (1.7-8.2); BASOPHILS % (AUTO) 0.4 % (0-2); EOSINOPHILS % (AUTO) 0.2 % (0-6); HEMOGLOBIN 12.1 g/dL (13.5-17.0); LYMPHOCYTES % (AUTO) 18.4 % (13-45); MEAN CORPUSCULAR HEMOGLOBIN 30.3 pg (27.0-33.4); MEAN CORPUSCULAR HGB CONC 34.7 g/dL (32.0-36.0); MEAN CORPUSCULAR VOLUME 87 fl (80-97); PLATELET COUNT 272 10^3/uL (150-450); TOTAL CELLS COUNTED % (AUTO) 100 %; WHITE BLOOD COUNT 9.7 10^3/uL (4.0-10.5)
[2020-05-25 08:28] LABS: ALBUMIN 3.6 g/dL (3.5-5.0); ALKALINE PHOSPHATASE 55 U/L (38-126); ANION GAP 8 (5-19); ASPARTATE AMINO TRANSFERASE 27 U/L (17-59); BILIRUBIN,TOTAL 0.6 mg/dL (0.2-1.3); BLOOD UREA NITROGEN 20 mg/dL (7-20); CARBON DIOXIDE 26 mmol/L (22-30); CHLORIDE 98 mmol/L (98-107); GLUCOSE 123 mg/dL (75-110); PHOSPHORUS 2.4 mg/dL (2.5-4.5); POTASSIUM 3.5 mmol/L (3.6-5.0); TOTAL PROTEIN 6.4 g/dL (6.3-8.2)
[2020-05-25] MEDS: ENOXAPARIN SODIUM INJ 40 MG/0.4 ML DISP.SYRIN SUBCUT SCH (10:03)
--- NOTE | 2020-05-25 13:48 | PDOC PROGRESS REPORT ---
Subjective Progress Note for:: 05/25/20 Subjective:: Patient states he feels a lot better today. His headache has remarkably improved. His fevers is also resolved. Still has some photophobia but better. Feels great today and is very appreciative of the care. I discussed with his hardness inspector today at [facility] in [place]. She informs me that there were no complications with the laser eye surgery that were done on both eyes early last month and that it is typically highly unusual to get meningitis as a complication following such procedures. She has no further recommendations at this time. Reason For Visit: MENINGITIS, FEVER Physical Exam Vital Signs: Temp Pulse Resp BP Pulse Ox 99.0 F 64 20 140/73 H 93 05/24/20 15:44 05/25/20 07:00 05/24/20 15:44 05/24/20 15:44 05/24/20 15:44 Intake & Output 05/24/20 05/25/20 05/26/20 06:59 06:59 06:59 Intake Total 2328 692 700 Output Total 1225 725 900 Balance 1103 -33 -200 Weight 78.6 kg 77 kg General appearance: PRESENT: no acute distress, cooperative Eye exam: PRESENT: conjunctiva pink, EOMI, PERRLA. ABSENT: conjunctival injection, conjunctiva pale, periorbital swelling, scleral icterus Neck exam: ABSENT: JVD Respiratory exam: PRESENT: clear to auscultation kev, symmetrical, unlabored. ABSENT: tachypnea, wheezes Cardiovascular exam: PRESENT: RRR, +S1, +S2. ABSENT: tachycardia GI/Abdominal exam: PRESENT: soft. ABSENT: rebound, rigid, tenderness Gentrourinary exam: ABSENT: lesions, scrotal swelling, urethral discharge Neurological exam: PRESENT: alert, awake, oriented to person, oriented to place, oriented to time Psychiatric exam: PRESENT: normal mood. ABSENT: agitated, anxious Focused psych exam: ABSENT: pressured speech Skin exam: ABSENT: jaundice, rash Results Laboratory Results: 05/25/20 07:40 05/25/20 07:40 05/25/20 05/25/20 07:40 07:40 WBC 9.7 RBC 4.00 L Hgb 12.1 L Hct 35.0 L MCV 87 MCH 30.3 MCHC 34.7 RDW 13.0 Plt Count 272 Seg Neutrophils % 74.0 Sodium 131.9 L Potassium 3.5 L Chloride 98 Carbon Dioxide 26 Anion Gap 8 BUN 20 Creatinine 0.81 Est GFR ( Amer) > 60 Glucose 123 H Calcium 9.0 Phosphorus 2.4 L Magnesium 2.2 Total Bilirubin 0.6 AST 27 Alkaline Phosphatase 55 Total Protein 6.4 Albumin 3.6 05/23/20 05/23/20 07:48 07:48 Creatine Kinase 603 H Troponin I < 0.012 Assessment and Plan - Diagnosis (1) Meningitis Is this a current diagnosis for this admission?: Yes Plan: Patient's lumbar puncture is quite consistent with meningitis. It seems most consistent with Aseptic likely viral meningitis with WBC of 72, lymphocyte predominance (74 lymph, 2monocytes per my discussion w/ Micro lab), protein 111 and glucose of 61. Respiratory viral panel is negative, HIV negative. CSF viral culture, CSF HSV and Enterovirus PCR and VDRL-CSF pending. CSF cytology pending. Patient denies history of HSV but did report having some fever blisters. I will continue treatment with IV acyclovir until CSF HSV PCR comes back negative and pending ID consult recommendations. I will go ahead and discontinue vancomycin and ceftriaxone as CSF Gram stain/culture are negative. ID consult placed Overall patient is feeling much better and his fevers have resolved. (2) Fever Qualifiers: Fever type: unspecified Qualified Code(s): R50.9 - Fever, unspecified Is this a current diagnosis for this admission?: Yes Plan: Likely secondary to meningitis. Fever is currently resolved. Tylenol as needed. Patient was thoroughly worked up for causes of fever on recent ER visit. Chest x-ray was negative. Urinalysis and abdominal/pelvis CT with contrast were also negative. Leukocytosis noted. COVID-19 test is negative Blood cultures are negative so far. (3) Maxillary sinusitis Qualifiers: Chronicity: unspecified Qualified Code(s): J32.0 - Chronic maxillary sinusitis Is this a current diagnosis for this admission?: Yes Plan: I suspect that this is more of a chronic finding that was incidentally noted on head CT on 05/22/2020 rather than acute as patient does not endorse any profound worsening of rhinorrhea/congestion and only endorses rather small amounts of rhinorrhea. Either way, this could also be a source of his current problem. Respiratory viral panel is however negative. Flonase. Supportive care. Augmentin prescribed during his last ER visit which I have resumed. (4) Person under investigation for COVID-19 Is this a current diagnosis for this admission?: Yes Plan: COVID test is negative 05/22/2020. (5) Cognitive impairment Is this a current diagnosis for this admission?: Yes Plan: Patient's sister states patient has a history of mild cognitive impairment. However patient is fully capable of making his own decisions and impairment only seems to be very mild. - Time Time Spent with patient: Less than 15 minutes Anticipated Discharge Disposition: Home, Self Care Anticipated Discharge Timeframe: within 48 hours
[2020-05-25] MEDS ORDERED: POTASSIUM CHLORIDE 10 MEQ TABLET.ER PO ONE (14:00)
[2020-05-25] MEDS: AMOXICILLIN TR/POT CLAVULANATE 875-125 MG TAB PO SCH (22:03)
[2020-05-25] MEDS: ACETAMINOPHEN 325 MG TABLET PO PRN (22:08)
--- NOTE | 2020-05-25 22:36 | Progress Note ---
Provider Note Provider Note: [facility] Telephone Advice Consultation Chart reviewed. Patient is a 70-year-old man withou significant past medical history except for cervical fracture s/p repair who was recently presenting headache x 1 week on and off, evaluated in the ED on 05/22 and found with maxillary sinusitis and sent home on augmentin. His symptoms worsened and he was having difficulty walking due to the headache and photophobia. he was admitted anf was found with leukocytosis. Lumbar puncture also had pleocytosis with lymphocytic predominance, normal glucose and elevated protein. Opening pressure was normal at 19 cm H20. CSF culture negative to date. Blood culture on 05/22 with 1 set positive for Staph spp and Bacillus spp. Patient was started on acyclovir, ceftriaxone and vancomycin. Antibiotics were discontinued today and patient continues on acyclovir awaiting HSV PCR. He denied any GI symptoms, traveling or sick contacts. HIV and SARS-CoV-2 tests are both negative. Respiratory viral panel was negative. ID consulted for recommendations. PMH: Cervical fracture PSH: Cervical fracture repair Allergies: No Known Allergies Allergy (Verified 05/22/20 09:36) Medications: Not known medications Vital Signs: Temp Pulse Resp BP Pulse Ox 99.0 F 81 16 106/68 95 05/25/20 19:22 05/25/20 19:22 05/25/20 19:22 05/25/20 19:22 05/25/20 19:22 Intake & Output 05/24/20 05/25/20 05/26/20 06:59 06:59 06:59 Intake Total 2328 692 1168 Output Total 3132 758 8308 Balance 1103 -31 -600 Weight 78.6 kg 77 kg Weight/Height Weight 77 kg Height 5 ft 10 in Laboratories: 05/25/20 07:40 05/25/20 07:40 MCV 87 fl (80-97) 05/25/20 07:40 MCH 30.3 pg (27.0-33.4) 05/25/20 07:40 MCHC 34.7 g/dL (32.0-36.0) 05/25/20 07:40 RDW 13.0 % (11.5-14.0) 05/25/20 07:40 Seg Neutrophils % 74.0 % (42-78) 05/25/20 07:40 Chloride 98 mmol/L (98-107) 05/25/20 07:40 Carbon Dioxide 26 mmol/L (22-30) 05/25/20 07:40 Anion Gap 8 (5-19) 05/25/20 07:40 Est GFR ( Amer) > 60 (>60) 05/25/20 07:40 Glucose 123 mg/dL (75-110) H 05/25/20 07:40 Lactic Acid 1.0 mmol/L (0.7-2.1) 05/23/20 07:48 Calcium 9.0 mg/dL (8.4-10.2) 05/25/20 07:40 Phosphorus 2.4 mg/dL (2.5-4.5) L 05/25/20 07:40 Magnesium 2.2 mg/dL (1.6-2.3) 05/25/20 07:40 Total Bilirubin 0.6 mg/dL (0.2-1.3) 05/25/20 07:40 AST 27 U/L (17-59) 05/25/20 07:40 Alkaline Phosphatase 55 U/L (38-126) 05/25/20 07:40 Total Protein 6.4 g/dL (6.3-8.2) 05/25/20 07:40 Albumin 3.6 g/dL (3.5-5.0) 05/25/20 07:40 TSH 4.26 uIU/mL (0.47-4.68) 05/24/20 06:02 Urine Color YELLOW 05/23/20 09:22 Urine Appearance CLEAR 05/23/20 09:22 Urine pH 5.0 (5.0-9.0) 05/23/20 09:22 Ur Specific [place] 1.025 05/23/20 09:22 Urine Protein NEGATIVE mg/dL (NEGATIVE) 05/23/20 09:22 Urine Glucose (UA) NEGATIVE mg/dL (NEGATIVE) 05/23/20 09:22 Urine Ketones 20 mg/dL (NEGATIVE) H 05/23/20 09:22 Urine Blood SMALL (NEGATIVE) H 05/23/20 09:22 Urine Nitrite NEGATIVE (NEGATIVE) 05/23/20 09:22 Ur Leukocyte Esterase NEGATIVE (NEGATIVE) 05/23/20 09:22 Urine WBC (Auto) 1 /HPF 05/23/20 09:22 Urine RBC (Auto) 1 /HPF 05/23/20 09:22 Fluid Tube Number 1 05/23/20 11:10 Fluid Tube Number 4 05/23/20 11:10 CSF Volume 4.0 CC 05/23/20 11:10 CSF Volume 4.0 CC 05/23/20 11:10 CSF Appearance CLEAR 05/23/20 11:10 CSF Appearance CLEAR 05/23/20 11:10 CSF Color COLORLESS 05/23/20 11:10 CSF Color COLORLESS 05/23/20 11:10 CSF WBC 72 /uL (0-5) H 05/23/20 11:10 CSF WBC 82 /uL (0-5) H 05/23/20 11:10 CSF RBC 2 /uL (0-10) 05/23/20 11:10 CSF RBC 7 /uL (0-10) 05/23/20 11:10 CSF Polymorphonuclear 24 % 05/23/20 11:10 CSF Polymorphonuclear 37 % 05/23/20 11:10 CSF Glucose 61 mg/dL (40-70) 05/23/20 11:10 CSF Total Protein 111 mg/dL (12-60) H 05/23/20 11:10 CSF VDRL Non Reactive (Non [place]:<1) 05/23/20 11:10 05/23/20 05/23/20 07:48 07:48 Creatine Kinase 603 H Troponin I < 0.012 Microbiology: Blood culture 05/22 Bacillus, Staph spp 10/24 sets 05/23 NGTD CSF Culture 05/23 NGTD Assessment and Recommendations: Patient evaluated for headache, photophobia, neck stiffness, fever, leukocytosis, CSF with mononuclear pleocytosis and elevated protein with normal glucose consistent with aseptic meningitis. Patient has been on acyclovir with adequate response. Vancomycin and ceftriaxone already discontinued as cultures have been negative. He was transitioned to augmentin for sinusitis. Blood culture with Bacillus and Staph spp represent contamination. Will wait for HSV PCR to give final recommendations. Meanwhile continue current management. Lyudmila Fischer MD [facility] [id number]
[2020-05-26] MEDS: ACYCLOVIR SODIUM 700 MG in NORMAL SALINE 100 ML IV SCH ×3 (01:28→17:03)
[2020-05-26] MEDS: FLUTICASONE NASAL SPRAY 50 MCG/SPRY 120 SPRAY/16 GM NASL SCH ×2 (06:02→17:04)
[2020-05-26 06:44] LABS: ABSOLUTE EOSINOPHILS # (AUTO) 0.1 10^3/uL (0.0-0.6); ABSOLUTE LYMPHOCYTES (AUTO) 1.5 10^3/uL (0.5-4.7); ABSOLUTE MONOCYTES (AUTO) 0.7 10^3/uL (0.1-1.4); ABSOLUTE NEUT (AUTO) 5.4 10^3/uL (1.7-8.2); BASOPHILS % (AUTO) 0.5 % (0-2); EOSINOPHILS % (AUTO) 1.8 % (0-6); HEMATOCRIT 35.4 % (37.9-51.0); LYMPHOCYTES % (AUTO) 19.7 % (13-45); MEAN CORPUSCULAR HGB CONC 33.8 g/dL (32.0-36.0); MEAN CORPUSCULAR VOLUME 89 fl (80-97); MONOCYTES % (AUTO) 8.5 % (3-13); PLATELET COUNT 284 10^3/uL (150-450); RED BLOOD COUNT 3.98 10^6/uL (4.35-5.55); SEGMENTED NEUTROPHILS % (AUTO) 69.5 % (42-78); TOTAL CELLS COUNTED % (AUTO) 100 %; WHITE BLOOD COUNT 7.7 10^3/uL (4.0-10.5)
[2020-05-26 06:59] LABS: ANION GAP 6 (5-19); BLOOD UREA NITROGEN 19 mg/dL (7-20); CALCIUM 8.7 mg/dL (8.4-10.2); CARBON DIOXIDE 26 mmol/L (22-30); CHLORIDE 103 mmol/L (98-107); GLUCOSE 96 mg/dL (75-110); POTASSIUM 4.2 mmol/L (3.6-5.0)
[2020-05-26] MEDS: AMOXICILLIN TR/POT CLAVULANATE 875-125 MG TAB PO SCH ×2 (10:29→22:46)
[2020-05-26] MEDS: ENOXAPARIN SODIUM INJ 40 MG/0.4 ML DISP.SYRIN SUBCUT SCH (10:30)
--- NOTE | 2020-05-26 11:02 | PDOC PROGRESS REPORT ---
Subjective Progress Note for:: 05/26/20 Subjective:: Feeling better but still not 100%. Head still feels a little wishy-washy. He feels slightly weaker than normal but has been able to ambulate to the bathroom. Reason For Visit: MENINGITIS, FEVER Physical Exam Vital Signs: Temp Pulse Resp BP Pulse Ox 97.9 F 66 28 H 149/83 H 97 05/26/20 07:35 05/26/20 07:35 05/26/20 07:35 05/26/20 07:35 05/26/20 07:35 Intake & Output 05/25/20 05/26/20 05/27/20 06:59 06:59 06:59 Intake Total 692 1882 Output Total 725 2150 Balance -33 -268 Weight 77 kg 76.5 kg General appearance: PRESENT: no acute distress, cooperative, well-developed, well-nourished Head exam: PRESENT: atraumatic, normocephalic Mouth exam: PRESENT: moist, neck supple, tongue midline Neck exam: ABSENT: carotid bruit, JVD, lymphadenopathy, meningismus Respiratory exam: PRESENT: clear to auscultation kev, symmetrical, unlabored. ABSENT: prolonged expiratory phas, rales, rhonchi, tachypnea, wheezes Cardiovascular exam: PRESENT: RRR, +S1, +S2. ABSENT: bradycardia, diastolic murmur, irregular rhythm, systolic murmur, tachycardia GI/Abdominal exam: PRESENT: normal bowel sounds, soft. ABSENT: distended, mass, tenderness Rectal exam: PRESENT: deferred Gentrourinary exam: ABSENT: indwelling catheter Extremities exam: ABSENT: pedal edema Musculoskeletal exam: PRESENT: ambulatory, full ROM, normal inspection. ABSENT: deformity, dislocation Neurological exam: PRESENT: alert, awake, oriented to person, oriented to place, oriented to time, oriented to situation, CN II-XII grossly intact. ABSENT: altered, motor sensory deficit Psychiatric exam: PRESENT: appropriate affect. ABSENT: agitated, anxious Focused psych exam: ABSENT: delusional, paranoid, restlessness Skin exam: PRESENT: dry, normal color, warm. ABSENT: rash Results Laboratory Results: 05/26/20 06:08 05/26/20 06:08 05/23/20 05/26/20 05/26/20 11:10 06:08 06:08 WBC 7.7 RBC 3.98 L Hgb 12.0 L Hct 35.4 L MCV 89 MCH 30.0 MCHC 33.8 RDW 13.0 Plt Count 284 Seg Neutrophils % 69.5 Sodium 134.5 L Potassium 4.2 Chloride 103 Carbon Dioxide 26 Anion Gap 6 BUN 19 Creatinine 0.96 Est GFR ( Amer) > 60 Glucose 96 Calcium 8.7 CSF VDRL Non Reactive 05/23/20 11:10 Cerebral Spinal Fluid - Csf Gram Stain - Final 05/23/20 11:10 Cerebral Spinal Fluid - Csf CSF Culture - Final NO GROWTH 3 DAYS 05/23/20 05/23/20 07:48 07:48 Creatine Kinase 603 H Troponin I < 0.012 Assessment and Plan - Diagnosis (1) Meningitis Is this a current diagnosis for this admission?: Yes Plan: Improvong with Acyclovir. HSV serology pending (2) Fever Qualifiers: Fever type: unspecified Qualified Code(s): R50.9 - Fever, unspecified Is this a current diagnosis for this admission?: Yes Plan: resolved (3) Maxillary sinusitis Qualifiers: Chronicity: unspecified Qualified Code(s): J32.0 - Chronic maxillary sinusitis Is this a current diagnosis for this admission?: Yes Plan: Complete therapy with Augmentin (4) Cognitive impairment Is this a current diagnosis for this admission?: Yes Plan: Encephalopathy due to meningitis. Resolved (5) Person under investigation for COVID-19 Is this a current diagnosis for this admission?: Yes Plan: Serology negative - Time Time Spent with patient: 15-24 minutes Medications reviewed and adjusted accordingly: Yes Anticipated Discharge Disposition: Home, Self Care Anticipated Discharge Timeframe: within 72 hours
[2020-05-26] MEDS: ACETAMINOPHEN 325 MG TABLET PO PRN (22:59)
[2020-05-27] MEDS: ACYCLOVIR SODIUM 700 MG in NORMAL SALINE 100 ML IV SCH ×2 (01:48→10:23)
[2020-05-27] MEDS: FLUTICASONE NASAL SPRAY 50 MCG/SPRY 120 SPRAY/16 GM NASL SCH ×2 (06:04→17:54)
[2020-05-27 07:07] LABS: HSV SOURCE CSF
[2020-05-27] MEDS: ENOXAPARIN SODIUM INJ 40 MG/0.4 ML DISP.SYRIN SUBCUT SCH (10:21)
[2020-05-27] MEDS: AMOXICILLIN TR/POT CLAVULANATE 875-125 MG TAB PO SCH ×2 (10:22→21:02)
--- NOTE | 2020-05-27 12:19 | PDOC DISCHARGE SUMMARY ---
Impression - Admit/DC Date/PCP Admission Date/Primary Care Provider: 05/23/20 13:45 Discharge Date: 05/27/20 - Additional Information Resuscitation Status: Full Code Home Medications: Amoxicillin/Potassium Clav [Augmentin 875-125 Tablet] 1 tab PO Q12 #20 tablet 05/22/20 History of Present Illiness History of Present Illness: RAFAEL PARADA is a 70 year old male Physical Exam Vital Signs: Temp Pulse Resp BP Pulse Ox 98.0 F 68 32 H 137/80 H 97 05/27/20 07:30 05/27/20 07:30 05/27/20 07:30 05/27/20 07:30 05/27/20 07:30 Intake & Output 05/26/20 05/27/20 05/28/20 06:59 06:59 06:59 Intake Total 1882 462 Output Total 5635 0579 264 [facility] -268 -1338 -781 Weight 76.5 kg 76.1 kg Neck exam: ABSENT: meningismus Respiratory exam: PRESENT: clear to auscultation kev Cardiovascular exam: PRESENT: RRR, +S1, +S2 GI/Abdominal exam: PRESENT: normal bowel sounds, soft. ABSENT: tenderness Extremities exam: ABSENT: pedal edema Neurological exam: PRESENT: alert, awake, oriented to person, oriented to place, oriented to time, oriented to situation, CN II-XII grossly intact. ABSENT: altered Results Laboratory Results: WBC 7.7 10^3/uL (4.0-10.5) 05/26/20 06:08 RBC 3.98 10^6/uL (4.35-5.55) L 05/26/20 06:08 Hgb 12.0 g/dL (13.5-17.0) L 05/26/20 06:08 Hct 35.4 % (37.9-51.0) L 05/26/20 06:08 MCV 89 fl (80-97) 05/26/20 06:08 MCH 30.0 pg (27.0-33.4) 05/26/20 06:08 MCHC 33.8 g/dL (32.0-36.0) 05/26/20 06:08 RDW 13.0 % (11.5-14.0) 05/26/20 06:08 Plt Count 284 10^3/uL (150-450) 05/26/20 06:08 Lymph % (Auto) 19.7 % (13-45) 05/26/20 06:08 [place] % (Auto) 8.5 % (3-13) 05/26/20 06:08 Eos % (Auto) 1.8 % (0-6) 05/26/20 06:08 Baso % (Auto) 0.5 % (0-2) 05/26/20 06:08 Absolute Neuts (auto) 5.4 10^3/uL (1.7-8.2) 05/26/20 06:08 Absolute Lymphs (auto) 1.5 10^3/uL (0.5-4.7) 05/26/20 06:08 Absolute Monos (auto) 0.7 10^3/uL (0.1-1.4) 05/26/20 06:08 Absolute Eos (auto) 0.1 10^3/uL (0.0-0.6) 05/26/20 06:08 Absolute Basos (auto) 0.0 10^3/uL (0.0-0.2) 05/26/20 06:08 Seg Neutrophils % 69.5 % (42-78) 05/26/20 06:08 Sodium 134.5 mmol/L (137-145) L 05/26/20 06:08 Potassium 4.2 mmol/L (3.6-5.0) 05/26/20 06:08 Chloride 103 mmol/L (98-107) 05/26/20 06:08 Carbon Dioxide 26 mmol/L (22-30) 05/26/20 06:08 Anion Gap 6 (5-19) 05/26/20 06:08 BUN 19 mg/dL (7-20) 05/26/20 06:08 Creatinine 0.96 mg/dL (0.52-1.25) 05/26/20 06:08 Est GFR ( Amer) > 60 (>60) 05/26/20 06:08 Est GFR (MDRD) Non-Af > 60 (>60) 05/26/20 06:08 Glucose 96 mg/dL (75-110) 05/26/20 06:08 Lactic Acid 1.0 mmol/L (0.7-2.1) 05/23/20 07:48 Calcium 8.7 mg/dL (8.4-10.2) 05/26/20 06:08 Phosphorus 2.4 mg/dL (2.5-4.5) L 05/25/20 07:40 Magnesium 2.2 mg/dL (1.6-2.3) 05/25/20 07:40 Total Bilirubin 0.6 mg/dL (0.2-1.3) 05/25/20 07:40 Direct Bilirubin 0.0 mg/dL (0.0-0.4) 05/25/20 07:40 Neonat Total Bilirubin Not Reportable 05/25/20 07:40 Neonat Direct Bilirubin Not Reportable 05/25/20 07:40 Neonat Indirect Bili Not Reportable 05/25/20 07:40 AST 27 U/L (17-59) 05/25/20 07:40 ALT 21 U/L (<50) 05/25/20 07:40 Alkaline Phosphatase 55 U/L (38-126) 05/25/20 07:40 Creatine Kinase 603 U/L (55-170) H 05/23/20 07:48 Troponin I < 0.012 ng/mL 05/23/20 07:48 Total Protein 6.4 g/dL (6.3-8.2) 05/25/20 07:40 Albumin 3.6 g/dL (3.5-5.0) 05/25/20 07:40 TSH 4.26 uIU/mL (0.47-4.68) 05/24/20 06:02 Urine Color YELLOW 05/23/20 09:22 Urine Appearance CLEAR 05/23/20 09:22 Urine pH 5.0 (5.0-9.0) 05/23/20 09:22 Ur Specific [place] 1.025 05/23/20 09:22 Urine Protein NEGATIVE mg/dL (NEGATIVE) 05/23/20 09:22 Urine Glucose (UA) NEGATIVE mg/dL (NEGATIVE) 05/23/20 09:22 Urine Ketones 20 mg/dL (NEGATIVE) H 05/23/20 09:22 Urine Blood SMALL (NEGATIVE) H 05/23/20 09:22 Urine Nitrite NEGATIVE (NEGATIVE) 05/23/20 09:22 Urine Bilirubin NEGATIVE (NEGATIVE) 05/23/20 09:22 Urine Urobilinogen 2.0 mg/dL (<2.0) H 05/23/20 09:22 Ur Leukocyte Esterase NEGATIVE (NEGATIVE) 05/23/20 09:22 Urine WBC (Auto) 1 /HPF 05/23/20 09:22 Urine RBC (Auto) 1 /HPF 05/23/20 09:22 Urine Mucus (Auto) RARE /LPF 05/23/20 09:22 Urine Ascorbic Acid NEGATIVE (NEGATIVE) 05/23/20 09:22 Fluid Tube Number 1 05/23/20 11:10 Fluid Tube Number 4 05/23/20 11:10 CSF Volume 4.0 CC 05/23/20 11:10 CSF Volume 4.0 CC 05/23/20 11:10 CSF Appearance CLEAR 05/23/20 11:10 CSF Appearance CLEAR 05/23/20 11:10 CSF Color COLORLESS 05/23/20 11:10 CSF Color COLORLESS 05/23/20 11:10 CSF WBC 72 /uL (0-5) H 05/23/20 11:10 CSF WBC 82 /uL (0-5) H 05/23/20 11:10 CSF RBC 2 /uL (0-10) 05/23/20 11:10 CSF RBC 7 /uL (0-10) 05/23/20 11:10 CSF Mononuclear Cells 63 % 05/23/20 11:10 CSF Mononuclear Cells 76 % 05/23/20 11:10 CSF Polymorphonuclear 24 % 05/23/20 11:10 CSF Polymorphonuclear 37 % 05/23/20 11:10 CSF Glucose 61 mg/dL (40-70) 05/23/20 11:10 CSF Total Protein 111 mg/dL (12-60) H 05/23/20 11:10 CSF VDRL Non Reactive (Non [place]:<1) 05/23/20 11:10 Chlamy pneumoniae PCR NOT DETECTED 05/23/20 15:08 Adenovirus (PCR) NOT DETECTED 05/23/20 15:08 B. pertussis DNA (PCR) NOT DETECTED 05/23/20 15:08 B.parapertussis DNA PCR NOT DETECTED 05/23/20 15:08 Coronavirus OC43 (PCR) NOT DETECTED 05/23/20 15:08 Coronavirus HKU1 (PCR) NOT DETECTED 05/23/20 15:08 Coronavirus 229E (PCR) NOT DETECTED 05/23/20 15:08 Coronavirus NL63 (PCR) NOT DETECTED 05/23/20 15:08 Herpes Simplex Source CSF 05/23/20 11:10 HSV I DNA PCR Negative (Negative) 05/23/20 11:10 HSV II DNA PCR Negative (Negative) 05/23/20 11:10 HIV 1&2 Antibody NEGATIVE (NEGATIVE) 05/23/20 09:04 Human Metapneumovir PCR NOT DETECTED 05/23/20 15:08 Influenza A (H1) PCR NOT DETECTED 05/23/20 15:08 Influ A (H1N1/09) PCR NOT DETECTED 05/23/20 15:08 Influenza A (H3) PCR NOT DETECTED 05/23/20 15:08 Influenza Type A (PCR) NOT DETECTED 05/23/20 15:08 Influenza Type B (PCR) NOT DETECTED 05/23/20 15:08 M. pneumoniae (PCR) NOT DETECTED 05/23/20 15:08 Parainfluenza 1 (PCR) NOT DETECTED 05/23/20 15:08 Parainfluenza 2 (PCR) NOT DETECTED 05/23/20 15:08 Parainfluenza 3 (PCR) NOT DETECTED 05/23/20 15:08 Parainfluenza 4 (PCR) NOT DETECTED 05/23/20 15:08 RSV (PCR) NOT DETECTED 05/23/20 15:08 Entero/Rhino (PCR) NOT DETECTED 05/23/20 15:08 05/23/20 07:48 Troponin I < 0.012
[2020-05-27] MEDS: ACYCLOVIR SODIUM 700 MG in NORMAL SALINE 250 ML IV SCH (17:51)
--- NOTE | 2020-05-27 19:50 | PDOC PROGRESS REPORT ---
Subjective Progress Note for:: 05/27/20 Subjective:: Patient feels better. Still feels weak but considerably improved. No more confusion. Reason For Visit: MENINGITIS, FEVER Physical Exam Vital Signs: Temp Pulse Resp BP Pulse Ox 98.9 F 74 32 H 135/80 H 99 05/27/20 15:54 05/27/20 15:54 05/27/20 15:54 05/27/20 15:54 05/27/20 15:54 Intake & Output 05/26/20 05/27/20 05/28/20 06:59 06:59 06:59 Intake Total 1882 462 114 Output Total 2150 1369 234 Balance -203 -2988 -109 Weight 76.5 kg 76.1 kg General appearance: PRESENT: no acute distress, cooperative, well-developed Head exam: PRESENT: atraumatic, normocephalic Eye exam: PRESENT: conjunctiva pink, EOMI. ABSENT: scleral icterus Ear exam: PRESENT: normal external ear exam. ABSENT: bleeding, drainage Mouth exam: PRESENT: moist, tongue midline Neck exam: PRESENT: full ROM. ABSENT: carotid bruit, JVD, lymphadenopathy, meningismus Respiratory exam: PRESENT: clear to auscultation kev, symmetrical, unlabored. ABSENT: prolonged expiratory phas, rales, rhonchi, tachypnea, wheezes Cardiovascular exam: PRESENT: RRR, +S1, +S2. ABSENT: bradycardia, diastolic murmur, irregular rhythm, systolic murmur, tachycardia GI/Abdominal exam: PRESENT: normal bowel sounds, soft. ABSENT: distended, guarding, mass, tenderness Rectal exam: PRESENT: deferred Gentrourinary exam: ABSENT: indwelling catheter Extremities exam: ABSENT: pedal edema Musculoskeletal exam: PRESENT: ambulatory, normal inspection. ABSENT: deformity, dislocation Neurological exam: PRESENT: alert, awake, oriented to person, oriented to place, oriented to time, oriented to situation, CN II-XII grossly intact. ABSENT: altered Psychiatric exam: PRESENT: appropriate affect, normal mood. ABSENT: agitated, anxious Focused psych exam: ABSENT: delusional, paranoid, restlessness Skin exam: PRESENT: dry, normal color, warm Results Laboratory Results: 05/26/20 06:08 05/26/20 06:08 05/23/20 05/23/20 07:48 07:48 Creatine Kinase 603 H Troponin I < 0.012 Assessment and Plan - Diagnosis (1) Meningitis Is this a current diagnosis for this admission?: Yes Plan: HSV negative. Will likely be able to D/C in AM and complete anti-viral therapy as an out patient (2) Maxillary sinusitis Qualifiers: Chronicity: unspecified Qualified Code(s): J32.0 - Chronic maxillary sinusitis Is this a current diagnosis for this admission?: Yes Plan: EOT with Augmentin 06/01/20 (3) Cognitive impairment Is this a current diagnosis for this admission?: Yes Plan: resolved (4) Person under investigation for COVID-19 Is this a current diagnosis for this admission?: Yes Plan: Serology negative (5) Fever Qualifiers: Fever type: unspecified Qualified Code(s): R50.9 - Fever, unspecified Is this a current diagnosis for this admission?: Yes Plan: resolved - Time Time Spent with patient: 15-24 minutes Medications reviewed and adjusted accordingly: Yes Anticipated Discharge Disposition: Home, Self Care Anticipated Discharge Timeframe: within 24 hours
[2020-05-27] MEDS: ACETAMINOPHEN 325 MG TABLET PO PRN (21:02)
--- NOTE | 2020-05-27 21:37 | Progress Note ---
Provider Note Provider Note: [facility] Telephone Advice Follow Up Chart reviewed. Patient is a 70-year-old man without significant past medical history except for cervical fracture s/p repair who was recently presenting headache x 1 week on and off, evaluated in the ED on 05/22 and found with maxillary sinusitis and sent home on augmentin. His symptoms worsened and he was having difficulty walking due to the headache and photophobia. Patient was admitted and was found with leukocytosis. Lumbar puncture also had pleocytosis with lymphocytic predominance, normal glucose and elevated protein. Opening pressure was normal at 19 cm H20. CSF culture negative to date. Blood culture on 05/22 with 1 set positive for Staph spp and Bacillus spp. Patient was started on acyclovir, ceftriaxone and vancomycin. Antibiotics were discontinued. HSV 1 and 2 negative from CSF. HIV and SARS-CoV-2 tests are both negative. Respiratory viral panel was negative. He is currently on augmentin for sinusitis and acyclovir day #4. Allergies: No Known Allergies Allergy (Verified 05/22/20 09:36) Medications: Not known medications Vital Signs: Temp Pulse Resp BP Pulse Ox 97.0 F 81 21 H 117/75 96 05/27/20 20:27 05/27/20 20:27 05/27/20 20:27 05/27/20 20:27 05/27/20 20:27 Intake & Output 05/26/20 05/27/20 05/28/20 06:59 06:59 06:59 Intake Total 1882 462 114 Output Total 2150 1800 903 Balance -268 -1338 -361 Weight 76.5 kg 76.1 kg Weight/Height Weight 76.1 kg Height 5 ft 10 in Laboratories: 05/26/20 06:08 05/26/20 06:08 MCV 89 fl (80-97) 05/26/20 06:08 MCH 30.0 pg (27.0-33.4) 05/26/20 06:08 MCHC 33.8 g/dL (32.0-36.0) 05/26/20 06:08 RDW 13.0 % (11.5-14.0) 05/26/20 06:08 Seg Neutrophils % 69.5 % (42-78) 05/26/20 06:08 Chloride 103 mmol/L (98-107) 05/26/20 06:08 Carbon Dioxide 26 mmol/L (22-30) 05/26/20 06:08 Anion Gap 6 (5-19) 05/26/20 06:08 Est GFR ( Amer) > 60 (>60) 05/26/20 06:08 Glucose 96 mg/dL (75-110) 05/26/20 06:08 Lactic Acid 1.0 mmol/L (0.7-2.1) 05/23/20 07:48 Calcium 8.7 mg/dL (8.4-10.2) 05/26/20 06:08 Phosphorus 2.4 mg/dL (2.5-4.5) L 05/25/20 07:40 Magnesium 2.2 mg/dL (1.6-2.3) 05/25/20 07:40 Total Bilirubin 0.6 mg/dL (0.2-1.3) 05/25/20 07:40 AST 27 U/L (17-59) 05/25/20 07:40 Alkaline Phosphatase 55 U/L (38-126) 05/25/20 07:40 Total Protein 6.4 g/dL (6.3-8.2) 05/25/20 07:40 Albumin 3.6 g/dL (3.5-5.0) 05/25/20 07:40 TSH 4.26 uIU/mL (0.47-4.68) 05/24/20 06:02 Urine Color YELLOW 05/23/20 09:22 Urine Appearance CLEAR 05/23/20 09:22 Urine pH 5.0 (5.0-9.0) 05/23/20 09:22 Ur Specific [place] 1.025 05/23/20 09:22 Urine Protein NEGATIVE mg/dL (NEGATIVE) 05/23/20 09:22 Urine Glucose (UA) NEGATIVE mg/dL (NEGATIVE) 05/23/20 09:22 Urine Ketones 20 mg/dL (NEGATIVE) H 05/23/20 09:22 Urine Blood SMALL (NEGATIVE) H 05/23/20 09:22 Urine Nitrite NEGATIVE (NEGATIVE) 05/23/20 09:22 Ur Leukocyte Esterase NEGATIVE (NEGATIVE) 05/23/20 09:22 Urine WBC (Auto) 1 /HPF 05/23/20 09:22 Urine RBC (Auto) 1 /HPF 05/23/20 09:22 Fluid Tube Number 1 05/23/20 11:10 Fluid Tube Number 4 05/23/20 11:10 CSF Volume 4.0 CC 05/23/20 11:10 CSF Volume 4.0 CC 05/23/20 11:10 CSF Appearance CLEAR 05/23/20 11:10 CSF Appearance CLEAR 05/23/20 11:10 CSF Color COLORLESS 05/23/20 11:10 CSF Color COLORLESS 05/23/20 11:10 CSF WBC 72 /uL (0-5) H 05/23/20 11:10 CSF WBC 82 /uL (0-5) H 05/23/20 11:10 CSF RBC 2 /uL (0-10) 05/23/20 11:10 CSF RBC 7 /uL (0-10) 05/23/20 11:10 CSF Polymorphonuclear 24 % 05/23/20 11:10 CSF Polymorphonuclear 37 % 05/23/20 11:10 CSF Glucose 61 mg/dL (40-70) 05/23/20 11:10 CSF Total Protein 111 mg/dL (12-60) H 05/23/20 11:10 CSF VDRL Non Reactive (Non [place]:<1) 05/23/20 11:10 05/23/20 05/23/20 07:48 07:48 Creatine Kinase 603 H Troponin I < 0.012 Microbiology: Blood culture 05/22 Bacillus, Staph spp 10/24 sets 05/23 NGTD CSF Culture 05/23 NGTD Assessment and Recommendations: Patient evaluated for headache, photophobia, neck stiffness, fever, leukocytos is, CSF with mononuclear pleocytosis and elevated protein with normal glucose consistent with aseptic meningitis. Patient has been on acyclovir with adequate response. Vancomycin and ceftriaxone already discontinued as cultures have been negative. He was transitioned to augmentin for sinusitis which is adequate as well. Blood culture with Bacillus and Staph spp represent contamination. Even though HSV PCR was negative (there could be false negatives early during the course especially with mixed PMN and Lymphocytes), as it is the only virus that we can treat and the fact that he has improved with acyclovir, will recommend to transition to valtrex 500 mg po bid to complete 7 days total (4 more days). Can continue agumentin tid to complete 5 days for sinusitis. Please call if questions. Lyudmila Fischer MD [facility] ID [phone]
[2020-05-28] MEDS: ACYCLOVIR SODIUM 700 MG in NORMAL SALINE 250 ML IV SCH ×2 (02:02→10:06)
[2020-05-28] MEDS: FLUTICASONE NASAL SPRAY 50 MCG/SPRY 120 SPRAY/16 GM NASL SCH (05:37)
[2020-05-28] MEDS: AMOXICILLIN TR/POT CLAVULANATE 875-125 MG TAB PO SCH (10:07)
[2020-05-28] MEDS: ENOXAPARIN SODIUM INJ 40 MG/0.4 ML DISP.SYRIN SUBCUT SCH (10:07)
--- NOTE | 2020-05-28 14:24 | PDOC DISCHARGE SUMMARY ---
Impression - Admit/DC Date/PCP Admission Date/Primary Care Provider: 05/23/20 13:45 Discharge Date: 05/28/20 - Discharge Diagnosis (1) Meningitis Is this a current diagnosis for this admission?: Yes (2) Maxillary sinusitis Is this a current diagnosis for this admission?: Yes (3) Cognitive impairment Is this a current diagnosis for this admission?: Yes (4) Person under investigation for COVID-19 Is this a current diagnosis for this admission?: Yes (5) Fever Is this a current diagnosis for this admission?: Yes - Additional Information Resuscitation Status: Full Code Discharge Diet: Regular Discharge Activity: Activity As Tolerated, Balance Activity w/Rest, Slowly Increase Activity Referrals: YOLANDA TURNER MD [ACTIVE STAFF] - Prescriptions: Amoxicillin/Potassium Clav [Augmentin 875-125 Tablet] 1 tab PO Q12 #6 tablet Valacyclovir HCl [Valtrex 500 Mg Tablet] 500 mg PO Q12 #12 tablet Home Medications: Amoxicillin/Potassium Clav [Augmentin 875-125 Tablet] 1 tab PO Q12 #20 tablet 05/22/20 Amoxicillin/Potassium Clav [Augmentin 875-125 Tablet] 1 tab PO Q12 #6 tablet 05/28/20 Fluticasone Propionate [Flonase Nasal Stacy 50 Mcg/Stacy 16 gm] 2 spray NASL Q12A spray.pump 05/28/20 Valacyclovir HCl [Valtrex 500 Mg Tablet] 500 mg PO Q12 #12 tablet 05/28/20 History of Present Illiness History of Present Illness: RAFAEL PARADA is a 70 year old male with history of cognitive impairments, who presents to the hospital with complaints of profuse headache as well as fever for the past few days. His symptoms started last week while he was outside working on the yard. He subsequently developed heavy fever as well as headache. The headache is in his parieto-occipital region. Over the past 2 days. He started to feel extremely sluggish and dizzy to the point where he was somewhat challenging to ambulate. He admits to photophobia. He denies phonophobia, nausea or vomiting. He denies any weakness in the extremities he denies any changes in mental status. Patient's sister is present at bedside who helps with history as well and states that patient has not really experienced any personality changes due to this. Denies exposure to sick contacts. Apparently patient rarely leaves the house. Patient was in the ER yesterday and was tested for COVID-19 discharged with Augmentin after CAT scan revealed sinusitis. Hospital Course Hospital Course: The patient's mental state improved with antibiotics including acyclovir. Culture was negative for bacterial meningitis. HSV studies were negative however they may be negative in the early part of the infection. The patient did remain on antibiotics for his sinus infection. After several days of treatment the patient began to feel much better. He was quite tired but each day of the acyclovir showed improvement. Once all the results were in, infectious diseases suggested discharge to complete antibiotic therapy for the sinusitis and antiviral therapy with Valtrex for the meningitis. Physical Exam Vital Signs: Temp Pulse Resp BP Pulse Ox 97.8 F 63 20 122/77 99 05/28/20 04:09 05/28/20 04:09 05/28/20 04:09 05/28/20 04:09 05/28/20 04:09 Intake & Output 05/27/20 05/28/20 05/29/20 06:59 06:59 06:59 Intake Total 462 378 264 Output Total 1800 2000 Balance -1338 -1622 264 Weight 76.1 kg 75.9 kg General appearance: PRESENT: no acute distress, cooperative, well-developed Neck exam: PRESENT: full ROM. ABSENT: meningismus Respiratory exam: PRESENT: clear to auscultation kev, symmetrical, unlabored. ABSENT: rales, rhonchi, tachypnea, wheezes Cardiovascular exam: PRESENT: RRR, +S1, +S2 GI/Abdominal exam: PRESENT: normal bowel sounds, soft. ABSENT: tenderness Neurological exam: PRESENT: alert, awake, oriented to person, oriented to place, oriented to time, oriented to situation, CN II-XII grossly intact. ABSENT: altered Psychiatric exam: PRESENT: appropriate affect. ABSENT: agitated, anxious Results Laboratory Results: WBC 7.7 10^3/uL (4.0-10.5) 05/26/20 06:08 RBC 3.98 10^6/uL (4.35-5.55) L 05/26/20 06:08 Hgb 12.0 g/dL (13.5-17.0) L 05/26/20 06:08 Hct 35.4 % (37.9-51.0) L 05/26/20 06:08 MCV 89 fl (80-97) 05/26/20 06:08 MCH 30.0 pg (27.0-33.4) 05/26/20 06:08 MCHC 33.8 g/dL (32.0-36.0) 05/26/20 06:08 RDW 13.0 % (11.5-14.0) 05/26/20 06:08 Plt Count 284 10^3/uL (150-450) 05/26/20 06:08 Lymph % (Auto) 19.7 % (13-45) 05/26/20 06:08 [place] % (Auto) 8.5 % (3-13) 05/26/20 06:08 Eos % (Auto) 1.8 % (0-6) 05/26/20 06:08 Baso % (Auto) 0.5 % (0-2) 05/26/20 06:08 Absolute Neuts (auto) 5.4 10^3/uL (1.7-8.2) 05/26/20 06:08 Absolute Lymphs (auto) 1.5 10^3/uL (0.5-4.7) 05/26/20 06:08 Absolute Monos (auto) 0.7 10^3/uL (0.1-1.4) 05/26/20 06:08 Absolute Eos (auto) 0.1 10^3/uL (0.0-0.6) 05/26/20 06:08 Absolute Basos (auto) 0.0 10^3/uL (0.0-0.2) 05/26/20 06:08 Seg Neutrophils % 69.5 % (42-78) 05/26/20 06:08 Sodium 134.5 mmol/L (137-145) L 05/26/20 06:08 Potassium 4.2 mmol/L (3.6-5.0) 05/26/20 06:08 Chloride 103 mmol/L (98-107) 05/26/20 06:08 Carbon Dioxide 26 mmol/L (22-30) 05/26/20 06:08 Anion Gap 6 (5-19) 05/26/20 06:08 BUN 19 mg/dL (7-20) 05/26/20 06:08 Creatinine 0.96 mg/dL (0.52-1.25) 05/26/20 06:08 Est GFR ( Amer) > 60 (>60) 05/26/20 06:08 Est GFR (MDRD) Non-Af > 60 (>60) 05/26/20 06:08 Glucose 96 mg/dL (75-110) 05/26/20 06:08 Lactic Acid 1.0 mmol/L (0.7-2.1) 05/23/20 07:48 Calcium 8.7 mg/dL (8.4-10.2) 05/26/20 06:08 Phosphorus 2.4 mg/dL (2.5-4.5) L 05/25/20 07:40 Magnesium 2.2 mg/dL (1.6-2.3) 05/25/20 07:40 Total Bilirubin 0.6 mg/dL (0.2-1.3) 05/25/20 07:40 Direct Bilirubin 0.0 mg/dL (0.0-0.4) 05/25/20 07:40 Neonat Total Bilirubin Not Reportable 05/25/20 07:40 Neonat Direct Bilirubin Not Reportable 05/25/20 07:40 Neonat Indirect Bili Not Reportable 05/25/20 07:40 AST 27 U/L (17-59) 05/25/20 07:40 ALT 21 U/L (<50) 05/25/20 07:40 Alkaline Phosphatase 55 U/L (38-126) 05/25/20 07:40 Creatine Kinase 603 U/L (55-170) H 05/23/20 07:48 Troponin I < 0.012 ng/mL 05/23/20 07:48 Total Protein 6.4 g/dL (6.3-8.2) 05/25/20 07:40 Albumin 3.6 g/dL (3.5-5.0) 05/25/20 07:40 TSH 4.26 uIU/mL (0.47-4.68) 05/24/20 06:02 Urine Color YELLOW 05/23/20 09:22 Urine Appearance CLEAR 05/23/20 09:22 Urine pH 5.0 (5.0-9.0) 05/23/20 09:22 Ur Specific [place] 1.025 05/23/20 09:22 Urine Protein NEGATIVE mg/dL (NEGATIVE) 05/23/20 09:22 Urine Glucose (UA) NEGATIVE mg/dL (NEGATIVE) 05/23/20 09:22 Urine Ketones 20 mg/dL (NEGATIVE) H 05/23/20 09:22 Urine Blood SMALL (NEGATIVE) H 05/23/20 09:22 Urine Nitrite NEGATIVE (NEGATIVE) 05/23/20 09:22 Urine Bilirubin NEGATIVE (NEGATIVE) 05/23/20 09:22 Urine Urobilinogen 2.0 mg/dL (<2.0) H 05/23/20 09:22 Ur Leukocyte Esterase NEGATIVE (NEGATIVE) 05/23/20 09:22 Urine WBC (Auto) 1 /HPF 05/23/20 09:22 Urine RBC (Auto) 1 /HPF 05/23/20 09:22 Urine Mucus (Auto) RARE /LPF 05/23/20 09:22 Urine Ascorbic Acid NEGATIVE (NEGATIVE) 05/23/20 09:22 Fluid Tube Number 1 05/23/20 11:10 Fluid Tube Number 4 05/23/20 11:10 CSF Volume 4.0 CC 05/23/20 11:10 CSF Volume 4.0 CC 05/23/20 11:10 CSF Appearance CLEAR 05/23/20 11:10 CSF Appearance CLEAR 05/23/20 11:10 CSF Color COLORLESS 05/23/20 11:10 CSF Color COLORLESS 05/23/20 11:10 CSF WBC 72 /uL (0-5) H 05/23/20 11:10 CSF WBC 82 /uL (0-5) H 05/23/20 11:10 CSF RBC 2 /uL (0-10) 05/23/20 11:10 CSF RBC 7 /uL (0-10) 05/23/20 11:10 CSF Mononuclear Cells 63 % 05/23/20 11:10 CSF Mononuclear Cells 76 % 05/23/20 11:10 CSF Polymorphonuclear 24 % 05/23/20 11:10 CSF Polymorphonuclear 37 % 05/23/20 11:10 CSF Glucose 61 mg/dL (40-70) 05/23/20 11:10 CSF Total Protein 111 mg/dL (12-60) H 05/23/20 11:10 CSF VDRL Non Reactive (Non Lena:<1) 05/23/20 11:10 Chlamy pneumoniae PCR NOT DETECTED 05/23/20 15:08 Adenovirus (PCR) NOT DETECTED 05/23/20 15:08 B. pertussis DNA (PCR) NOT DETECTED 05/23/20 15:08 B.parapertussis DNA PCR NOT DETECTED 05/23/20 15:08 Coronavirus OC43 (PCR) NOT DETECTED 05/23/20 15:08 Coronavirus HKU1 (PCR) NOT DETECTED 05/23/20 15:08 Coronavirus 229E (PCR) NOT DETECTED 05/23/20 15:08 Coronavirus NL63 (PCR) NOT DETECTED 05/23/20 15:08 Herpes Simplex Source CSF 05/23/20 11:10 HSV I DNA PCR Negative (Negative) 05/23/20 11:10 HSV II DNA PCR Negative (Negative) 05/23/20 11:10 HIV 1&2 Antibody NEGATIVE (NEGATIVE) 05/23/20 09:04 Human Metapneumovir PCR NOT DETECTED 05/23/20 15:08 Influenza A (H1) PCR NOT DETECTED 05/23/20 15:08 Influ A (H1N1/09) PCR NOT DETECTED 05/23/20 15:08 Influenza A (H3) PCR NOT DETECTED 05/23/20 15:08 Influenza Type A (PCR) NOT DETECTED 05/23/20 15:08 Influenza Type B (PCR) NOT DETECTED 05/23/20 15:08 M. pneumoniae (PCR) NOT DETECTED 05/23/20 15:08 Parainfluenza 1 (PCR) NOT DETECTED 05/23/20 15:08 Parainfluenza 2 (PCR) NOT DETECTED 05/23/20 15:08 Parainfluenza 3 (PCR) NOT DETECTED 05/23/20 15:08 Parainfluenza 4 (PCR) NOT DETECTED 05/23/20 15:08 RSV (PCR) NOT DETECTED 05/23/20 15:08 Entero/Rhino (PCR) NOT DETECTED 05/23/20 15:08 05/23/20 07:48 Troponin I < 0.012 Plan Health Concerns: Constellation of sinusitis and meningitis Plan of Treatment: Complete medications as noted above. Will discharge with home health as well. Goals: Complete recovery from sinus infection and aseptic meningitis. This will include ongoing physical therapy at home to maximize recovery Time Spent: Greater than 30 Minutes Stroke Is this a Stroke Patient?: No Acute Heart Failure - Is this a Heart Failure Patient?: No
[2020-05-28 16:05] VITALS: BP 98/57
== END 2020-05-28 17:11 | disposition home health service (06) | DRG 76 ==
LOC: ER 04:29 → EH 13:45 → 3N 15:42 → 3S 05-24 17:07
PROVIDERS: ADMIT Internal Medicine; ATTEND Hospitalist
PROC: 009U3ZX Drainage of Spinal Canal, Percutaneous Approach, Diagnostic (ICD-10-PCS; principal; 2020-05-23)
DX: A87.9 Viral meningitis, unspecified (principal); J32.0 Chronic maxillary sinusitis; G31.84 Mild cognitive impairment of uncertain or unknown etiology; Z20.828 Contact with and (suspected) exposure to other viral communicable diseases; Z87.891 Personal history of nicotine dependence; Z80.1 Family history of malignant neoplasm of trachea, bronchus and lung; Z80.0 Family history of malignant neoplasm of digestive organs
CPT/HCPCS: 0099U; 36415; 80048; 80053; 81001; 82550; 82945; 83605; 83735; 84100; 84157; 84443; 84484; 85025; 86592; 86701; 87040; 87070; 87205; 87252; 87498; 87529; 89050; 93005; 93010; 96360; 96361; 99284; J0133; J0696; J1650; J3370; J3490; J7030; J7050; J7060